=== PATIENT | male | born 1975 | race Caucasian/White ===

== ENCOUNTER 2017-11-06 13:10 | Emergency (ER) | payer SELFPAY ==
[2017-11-06 13:18] VITALS: BP 142/80
[2017-11-06] MEDS ORDERED: HYDROCODONE/ACETAMINOPHEN 5-325 MG TABLET PO ONE (14:37)
--- NOTE | 2017-11-06 14:38 | ER Document Report ---
ED Extremity Problem, Upper - General Chief Complaint: Shoulder Injury Stated Complaint: SHOULDER INJURY Time Seen by Provider: 11/06/17 14:22 Mode of Arrival: Ambulatory Information source: Patient Notes: 42-year-old male presents to ED for complaint of left shoulder pain. 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 He states he had already taken 800 mg of ibuprofen at 5:00 and at 7:00 he took 650 of Tylenol. He states that EMS came to the scene and checked him out and he did not want to come to the emergency room at that time. He states that by the time he got home the pain was so bad that his convinced him to come to the emergency room to have the shoulder checked out. He is alert and oriented speaking in full sentences walking with even steady gait respirations regular and unlabored. - HPI Patient complains to provider of: Shoulder - Left Onset: This morning Recent injury: Yes Where: Work Quality of pain: Throbbing Severity of pain: Moderate, Persistent, Worse Pain Level: 4 Context: Blow, Fall Associated symptoms: None Exacerbated by: Movement, Exertion Relieved by: Nothing Similar symptoms previously: No - Related Data Allergies/Adverse Reactions: Penicillins Allergy (Verified 11/06/17 13:15) Past Medical History - General Information source: Patient - Social History Smoking Status: Current Every Day Smoker Cigarette use (# per day): Yes - 2 ppd Chew tobacco use (# tins/day): No Smoking Education Provided: Yes - 4min Frequency of alcohol use: None Drug Abuse: None 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 Lives with: Family Family History: Reviewed & Not Pertinent Patient has suicidal ideation: No Patient has homicidal ideation: No - Past Medical History Cardiac Medical History: Reports: None Pulmonary Medical History: Reports: None EENT Medical History: Reports: None Neurological Medical History: Reports: None Endocrine Medical History: Reports: None Renal/ Medical History: Reports: None Malignancy Medical History: Reports None GI Medical History: Reports: None Musculoskeltal Medical History: Reports None Skin Medical History: Reports None Psychiatric Medical History: Reports: None Traumatic Medical History: Reports: None Infectious Medical History: Reports: None Past Surgical History: Reports: Hx Adenoidectomy, Hx Myringotomy, Hx Tonsillectomy, Other - Lasix as surgery - Immunizations Immunizations up to date: No Hx Diphtheria, Pertussis, Tetanus Vaccination: No Review of Systems - Review of Systems Constitutional: No symptoms reported EENT: No symptoms reported Cardiovascular: No symptoms reported Respiratory: No symptoms reported Gastrointestinal: No symptoms reported Genitourinary: No symptoms reported Male Genitourinary: No symptoms reported Musculoskeletal: Joint pain, Joint swelling - Left shoulder pain swelling Skin: No symptoms reported Hematologic/Lymphatic: No symptoms reported Neurological/Psychological: No symptoms reported Physical Exam - Vital signs Vitals: Temp Pulse Resp BP Pulse Ox 98.9 F 91 16 142/80 H 97 11/06/17 13:17 11/06/17 13:17 11/06/17 13:17 11/06/17 13:17 11/06/17 13:17 Interpretation: Normal - General General appearance: Appears well, Alert - HEENT Head: Normocephalic, Atraumatic Eyes: Normal Pupils: PERRL - Respiratory Respiratory status: No respiratory distress Chest status: Nontender Breath sounds: Normal Chest palpation: Normal - Cardiovascular Rhythm: Regular Heart sounds: Normal auscultation Murmur: No - Abdominal Inspection: Normal Distension: No distension Bowel sounds: Normal Tenderness: Nontender Organomegaly: No organomegaly - Back Back: Normal, Nontender - Extremities General upper extremity: Normal color, Normal temperature General lower extremity: Normal inspection, Nontender, Normal color, Normal ROM , Normal temperature, Normal weight bearing. No: Ricco's sign Shoulder: Tender, Ecchymosis, Limited ROM - Due to pain - Neurological Neuro grossly intact: Yes Cognition: Normal Orientation: AAOx4 Crystal Coma Scale Eye Opening: Spontaneous Hanh Coma Scale Verbal: Oriented Crystal Coma Scale Motor: Obeys Commands Hanh Coma Scale Total: 15 Speech: Normal Motor strength normal: LUE, RUE, LLE, RLE Sensory: Normal - Psychological Associated symptoms: Normal affect, Normal mood - Skin Skin Temperature: Warm Skin Moisture: Dry Skin Color: Normal Course - Re-evaluation Re-evalutation: 11/06/17 21:07 Report was discussed with patient and written report given to patient. Patient was offered a sling but refused it. Patient was given instructions on ice and ibuprofen. Patient was instructed to follow-up with orthopedics. - Vital Signs Vital signs: Temp Pulse Resp BP Pulse Ox 98.9 F 91 16 142/80 H 97 11/06/17 13:17 11/06/17 13:17 11/06/17 13:17 11/06/17 13:17 11/06/17 13:17 - Diagnostic Test Radiology reviewed: Image reviewed, Reports reviewed Discharge - Discharge Clinical Impression: Injury of left shoulder Qualifiers: Encounter type: initial encounter Qualified Code(s): S49.92XA - Unspecified injury of left shoulder and upper arm, initial encounter Condition: Stable Disposition: HOME, SELF-CARE Additional Instructions: Shoulder Injury You have injured your shoulder. This usually results from stretching or tearing of the tendons during trauma. Time and protection are required in order to heal properly. Many injuries are quite disabling, and should be taken seriously. Initial treatment includes cold packs and a sling to rest the shoulder. The physician has assessed the seriousness of your injury, and has outlined a treatment plan. Understand that this treatment may change, depending on how you progress. If a re-examination was recommended, it is important that you follow up as instructed. Some shoulder injuries (such as partial tear of the rotator cuff) are only suspected after you've failed to improve. Call us if there's severe pain, numbness, or loss of function. Toradol Injection You have been given an injection of ketorolac tromethamine (Toradol). This is an excellent, safe drug for pain control. It also has potent antiinflammatory action. You should have significant pain relief within about one hour. Toradol is not addicting and is non-sedating. It does not interfere with driving or work. Call or return if you develop itching, hives, shortness of breath, or rash. Exercise Program for the Shoulder Since the shoulder moves in so many directions, the joint attachment is weak. Muscles provide most of the stability to the shoulder. You must exercise your shoulder to prevent painful instability or stiffening. PASSIVE - These may be begun within a few days of the injury. While standing, lean forward, allowing the arm to hang down towards the floor. Move the arm in small circles while slowly twisting your chest towards and away from the hanging arm. Do this for one minute. ACTIVE - These may be performed when the doctor gives permission. Begin with the arms at the sides. Raise the arms forward (shoulder's width apart) until they reach shoulder level. Then slowly swing both arms back until they are aiming straight out away from each other. Then bring them forward again, and finally, lower them to your sides. Repeat 20 to 30 times. As you improve, put weights in your hands for the exercise. Start with one pound, and work up to 10 pounds. Never use more than is comfortable. Athletes may work up to 30 pounds. Ibuprofen Ibuprofen is an excellent, safe drug for pain control. In addition, it has potent antiinflammatory effects which are beneficial, especially in the treatment of injuries, arthritis, or tendonitis. It's best to take ibuprofen with food. Persons with ulcer disease or allergy to aspirin should notify their physician of this before taking ibuprofen. Take the medication exactly as prescribed. Don't take additional doses unless instructed to do so by your doctor. If you develop wheezing, shortness of breath, hives, faintness, stomach pain, vomiting, or dark black stools, return for re-evaluation at once. FOLLOW-UP CARE: If you have been referred to a physician for follow-up care, call the physician s office for an appointment as you were instructed or within the next two days. If you experience worsening or a significant change in your symptoms, notify the physician immediately or return to the Emergency Department at any time for re-evaluation. Forms: Elevated Blood Pressure, Smoking Cessation Education, Return to Work Referrals: ELI KIRAN MD [ACTIVE STAFF] - Follow up as needed
[2017-11-06] MEDS ORDERED: KETOROLAC TROMETHAMINE 60 MG/2 ML SDV IM ONE (14:51)
--- NOTE | 2017-11-06 15:13 | RADIOLOGY REPORT (SQ) ---
EXAM DESCRIPTION: SHOULDER LEFT 2 OR MORE VIEWS COMPLETED DATE/TIME: 11/06/2017 2:38 pm REASON FOR STUDY: fall injury COMPARISON: None. NUMBER OF VIEWS: Three views. TECHNIQUE: Internal rotation, external rotation, and Y view images acquired of the left shoulder. LIMITATIONS: None. FINDINGS: MINERALIZATION: Normal. BONES: No acute fracture or dislocation. No worrisome bone lesions. JOINTS: No dislocation. VISUALIZED LUNGS AND RIBS: No pneumothorax. No rib fracture. SOFT TISSUES: No radiopaque foreign body. OTHER: No other significant finding. IMPRESSION: NEGATIVE STUDY OF THE LEFT SHOULDER. NO RADIOGRAPHIC EVIDENCE OF ACUTE INJURY. TECHNICAL DOCUMENTATION: JOB ID: [id number] [employer]- All Rights Reserved Reading location - IP/workstation name: [email or web address]
== END 2017-11-06 15:40 | disposition home or self-care (01) ==
LOC: ER 13:10
DX: S49.92XA Unspecified injury of left shoulder and upper arm, initial encounter (principal); M25.512 Pain in left shoulder; W19.XXXA Unspecified fall, initial encounter; Y93.89 Activity, other specified; Y99.0 Civilian activity done for income or pay; F17.210 Nicotine dependence, cigarettes, uncomplicated; Z71.6 Tobacco abuse counseling; Z88.0 Allergy status to penicillin
CPT/HCPCS: 99283; 99406

== ENCOUNTER 2018-06-19 16:48 | Inpatient (IN) | payer SELFPAY ==
[~2018-06-19 16:48] MED LIST: DEXAMETHASONE SOD PHOSPHATE INJ 4 MG/1 ML VIAL ONE; GLYCOPYRROLATE 1 MG/5 ML SYRINGE ONE; NEOSTIGMINE METHYLSULFATE 10 MG/10 ML VIAL ONE; ONDANSETRON HCL INJ/PF 4 MG/2 ML SDV ONE; ROCURONIUM BROMIDE INJ 50 MG/5 ML VIAL IV ONE; SUCCINYLCHOLINE CHLORIDE INJ 200 MG/10 ML VIAL ONE
[2018-06-19] MEDS ORDERED: NORMAL SALINE 1000 ML 1,000 ML IV ONE (17:26)
[2018-06-19] MEDS ORDERED: FAMOTIDINE INJ/PF 20 MG/2 ML SDV IV ONE (17:26)
--- NOTE | 2018-06-19 17:27 | ER Document Report ---
ED Medical Screen (RME) - General Chief Complaint: Abdominal Pain Stated Complaint: ABDOMINAL PAIN Time Seen by Provider: 06/19/18 17:26 - HPI Notes: 06/19/18 17:26 Epigastric and right lower quadrant pain significant right lower quadrant tenderness - Related Data Allergies/Adverse Reactions: Penicillins Allergy (Verified 11/06/17 13:15) Past Medical History - Social History Chew tobacco use (# tins/day): No Frequency of alcohol use: Occasional Drug Abuse: None Renal/ Medical History: Denies: Hx Peritoneal Dialysis Past Surgical History: Reports: Hx Adenoidectomy, Hx Myringotomy, Hx Tonsillectomy, Other - Lasix as surgery - Immunizations Immunizations up to date: No Hx Diphtheria, Pertussis, Tetanus Vaccination: No Physical Exam - Vital signs Vitals: Temp Pulse Resp BP Pulse Ox 99.5 F 107 H 18 150/85 H 97 06/19/18 17:03 06/19/18 17:03 06/19/18 17:03 06/19/18 17:03 06/19/18 17:03 - Abdominal Tenderness: Tender - Rlq, Guarding Course - Vital Signs Vital signs: Temp Pulse Resp BP Pulse Ox 99.5 F 107 H 18 150/85 H 97 06/19/18 17:03 06/19/18 17:03 06/19/18 17:03 06/19/18 17:03 06/19/18 17:03
[2018-06-19 18:25] LABS: HEMATOCRIT 44.2 % (37.9-51.0); HEMOGLOBIN 15.3 g/dL (13.5-17.0); MEAN CORPUSCULAR HEMOGLOBIN 32.1 pg (27.0-33.4); MEAN CORPUSCULAR HGB CONC 34.5 g/dL (32.0-36.0); MEAN CORPUSCULAR VOLUME 93 fl (80-97); PLATELET COUNT 531 10^3/uL (150-450); RED BLOOD COUNT 4.76 10^6/uL (4.35-5.55); WHITE BLOOD COUNT 20.2 10^3/uL (4.0-10.5)
--- NOTE | 2018-06-19 18:35 | RADIOLOGY REPORT (SQ) ---
EXAM DESCRIPTION: CT ABD/PELVIS WITH IV ONLY COMPLETED DATE/TIME: 06/19/2018 6:24 pm REASON FOR STUDY: Rlq pain COMPARISON: None. TECHNIQUE: CT scan of the abdomen and pelvis performed using helical scanning technique with dynamic intravenous contrast injection. No oral contrast. Images reviewed with lung, soft tissue, and bone windows. Reconstructed coronal and sagittal MPR images reviewed. Delayed images for evaluation of the urinary system also acquired. All images stored on PACS. All CT scanners at this facility use dose modulation, iterative reconstruction, and/or weight based d osing when appropriate to reduce radiation dose to as low as reasonably achievable ([facility]ARA). [facility]: Dose Right [facility]: CareDose [facility]: Dose Right [facility]: Teradose 4D [facility]: Schoolfy CONTRAST TYPE AND DOSE: contrast/concentration: Isovue 350.00 mg/ml; Total Contrast Delivered: 100.0 ml; Total Saline Delivered: 72.0 ml RENAL FUNCTION: None required. The patient is less than 50 years old. RADIATION DOSE: CT Rad equipment meets quality standard of care and radiation dose reduction techniq ues were employed. CTDIvol: 19.6 - 20.8 mGy. DLP: 2570 mGy-cm.. LIMITATIONS: None. FINDINGS: LOWER CHEST: No significant findings. No nodules or infiltrates. LIVER: Normal size. No masses. No dilated ducts. SPLEEN: Normal size. No focal lesions. PANCREAS: No masses. No significant calcifications. No adjacent inflammation or peripancreatic fluid collections. Pancreatic duct not dilated. GALLBLADDER: No identified stones by CT criteria. No inflammatory changes to suggest cholecystitis. ADRENAL GLANDS: No significant masses or asymmetry. RIGHT KIDNEY AND URETER: No solid masses. No significant calcifications. No hydronephrosis or hyd roureter. LEFT KIDNEY AND URETER: No solid masses. No significant calcifications. No hydronephrosis or hydr oureter. AORTA AND VESSELS: No aneurysm. No dissection. Renal arteries, SMA, celiac without stenosis. RETROPERITONEUM: No retroperitoneal adenopathy, hemorrhage or masses. BOWEL AND PERITONEAL CAVITY: No masses or inflammatory changes. No free fluid or peritoneal masses. APPENDIX: Thickened and fluid-filled appendix in the right lower quadrant measuring 1.6 cm with exten sive surrounding fat stranding PELVIS: No mass. No free fluid. Normal bladder. ABDOMINAL WALL: No masses. No hernias. BONES: No significant or acute findings. OTHER: No other significant finding. IMPRESSION: Thickened and fluid-filled appendix in the right lower quadrant measuring 1.6 cm with ex tensive surrounding fat stranding, consistent with acute appendicitis. No evidence of perforation or abscess. TECHNICAL DOCUMENTATION: JOB ID: [id number] Quality ID # [id number]: Final reports with documentation of one or more dose reduction techniques (e.g., Au tomated exposure control, adjustment of the mA and/or kV according to patient size, use of iterative reconstruction technique) 2010 [employer]- All Rights Reserved Reading location - IP/workstation name: [email or web address]
[2018-06-19 18:40] LABS: ABSOLUTE LYMPHOCYTES# (MANUAL) 4.6 10^3/uL (0.5-4.7); ABSOLUTE MONOCYTES # (MANUAL) 1.8 10^3/uL (0.1-1.4); ABSOLUTE NEUTROPHILS# (MANUAL) 13.7 10^3/uL (1.7-8.2); BASOPHILS % (MANUAL) 0 % (0-2); EOSINOPHILS % (MANUAL) 0 % (0-6); LYMPHOCYTES % (MANUAL) 23 % (13-45); MONOCYTES % (MANUAL) 9 % (3-13); SEGMENTED NEUTROPHILS % (MAN) 68 % (42-78); TOTAL CELLS COUNTED 100
[2018-06-19 18:41] LABS: PLATELET CLUMPS PRESENT; PLATELET COMMENT INCREASED
[2018-06-19 19:04] LABS: ALANINE AMINOTRANSFERASE 37 U/L (21-72); ALBUMIN 4.5 g/dL (3.5-5.0); ALKALINE PHOSPHATASE 97 U/L (38-126); ANION GAP 10 (5-19); ASPARTATE AMINO TRANSFERASE 21 U/L (17-59); BILIRUBIN,DIRECT 0.2 mg/dL (0.0-0.4); BILIRUBIN,TOTAL 0.5 mg/dL (0.2-1.3); BLOOD UREA NITROGEN 16 mg/dL (7-20); CALCIUM 9.2 mg/dL (8.4-10.2); CARBON DIOXIDE 26 mmol/L (22-30); CHLORIDE 105 mmol/L (98-107); GLUCOSE 98 mg/dL (75-110); LIPASE 72.1 U/L (23-300); POTASSIUM 4.3 mmol/L (3.6-5.0); SODIUM 140.8 mmol/L (137-145); TOTAL PROTEIN 7.2 g/dL (6.3-8.2)
[2018-06-19] MEDS ORDERED: NICOTINE 21 MG/24 HR PATCH.TD24 TD ONE (20:22)
--- NOTE | 2018-06-19 20:29 | ER Document Report ---
ED General - General Chief Complaint: Abdominal Pain Stated Complaint: ABDOMINAL PAIN Time Seen by Provider: 06/19/18 17:26 Notes: Patient is a 43-year-old male without chronic medical problems who presents with 2 weeks of abdominal pain that has progressed to become more focal in the right lower abdomen over the past 1 week. Patient was seen in urgent care, referred to the emergency department for further assessment given concern for possible acute appendicitis. Patient describes a dull, throbbing, constant pain to the right lower abdomen worsened by moving or touching the area. Nothing improves the pain. No history of similar symptoms in the past. Has had nausea but no vomiting. No fever or constitutional symptoms. No prior abdominal surgical history. - Related Data Allergies/Adverse Reactions: Penicillins Allergy (Verified 11/06/17 13:15) Past Medical History - General Information source: Patient - Social History Smoking Status: Current Every Day Smoker Chew tobacco use (# tins/day): No Frequency of alcohol use: Occasional Drug Abuse: None Lives with: Spouse/Significant other Family History: Reviewed & Not Pertinent Patient has suicidal ideation: No Patient has homicidal ideation: No Renal/ Medical History: Denies: Hx Peritoneal Dialysis Past Surgical History: Reports: Hx Adenoidectomy, Hx Myringotomy, Hx Tonsillectomy, Other - Lasix as surgery - Immunizations Immunizations up to date: No Hx Diphtheria, Pertussis, Tetanus Vaccination: No Review of Systems - Review of Systems Notes: Constitutional: Negative for fever. HENT: Negative for sore throat. Eyes: Negative for visual changes. Cardiovascular: Negative for chest pain. Respiratory: Negative for shortness of breath. Gastrointestinal: Positive for abdominal pain and nausea Genitourinary: Negative for dysuria. Musculoskeletal: Negative for back pain. Skin: Negative for rash. Neurological: Negative for headaches, weakness or numbness. 10 point ROS negative except as marked above and in HPI. Physical Exam - Vital signs Vitals: Temp Pulse Resp BP Pulse Ox 99.5 F 107 H 18 150/85 H 97 06/19/18 17:03 06/19/18 17:03 06/19/18 17:03 06/19/18 17:03 06/19/18 17:03 Interpretation: Hypertensive, Tachycardic Notes: PHYSICAL EXAMINATION: GENERAL: Well-appearing, well-nourished and in no acute distress. HEAD: Atraumatic, normocephalic. EYES: Pupils equal round and reactive to light, extraocular movements intact, sclera anicteric, conjunctiva are normal. ENT: nares patent, oropharynx clear without exudates. Moist mucous membranes. NECK: Normal range of motion, supple without lymphadenopathy LUNGS: Breath sounds clear to auscultation bilaterally and equal. No wheezes rales or rhonchi. HEART: Regular rate and rhythm without murmurs ABDOMEN: Soft, focal tenderness to the right lower quadrant with rebound but no guarding. No other localized areas of tenderness. EXTREMITIES: Normal range of motion, no pitting or edema. No cyanosis. NEUROLOGICAL: No focal neurological deficits. Moves all extremities spontaneously and on command. PSYCH: Normal mood, normal affect. SKIN: Warm, Dry, normal turgor, no rashes or lesions noted. Course - Re-evaluation Re-evalutation: 06/19/18 20:30 Patient presents with an exam consistent with acute appendicitis, confirmed on CT of the abdomen pelvis. Leukocytosis present. Patient is otherwise well in appearance, vitals within acceptable limits at time of my evaluation although moderate tachycardia noted at time of presentation. I discussed this case with Dr. Patrick the surgeon on-call who has accepted the patient for surgical management. - Vital Signs Vital signs: Temp Pulse Resp BP Pulse Ox 98.2 F 83 15 141/81 H 97 06/19/18 21:26 06/19/18 21:26 06/19/18 21:26 06/19/18 21:26 06/19/18 21:26 - Laboratory Result Diagrams: 06/19/18 18:02 06/19/18 18:37 Laboratory results interpreted by me: 06/19/18 18:02 WBC 20.2 H Plt Count 531 H Abs Neuts (Manual) 13.7 H Abs Monocytes (Manual) 1.8 H - Diagnostic Test Radiology reviewed: Reports reviewed Discharge - Discharge Clinical Impression: Acute appendicitis Qualifiers: Acute appendicitis type: with localized peritonitis Appendicitis gangrene presence: unspecified whether gangrene present Appendicitis perforation presence: without perforation Appendicitis abscess presence: without abscess Qualified Code(s): K35.30 - Acute appendicitis with localized peritonitis, without perforation or gangrene Condition: Fair Disposition: ADMITTED INPATIENT Admitting Provider: Surgicalist Unit Admitted: Surgical Floor
[2018-06-19] MEDS ORDERED: CIPROFLOXACIN 400 MG/D5W RTU 400 MG/200 ML RTUPB IV ONE (20:39)
[2018-06-19] MEDS ORDERED: RINGERS SOLUTION,LACTATED 1,000 ML IV ONE (20:40)
[2018-06-19] MEDS ORDERED: METRONIDAZOLE 500 MG/NS RTU 500 MG/100 ML RTUPB IV ONE (20:40)
[2018-06-19] MEDS ORDERED: FENTANYL CITRATE INJ/PF 250 MCG/5 ML AMPULE ONE (21:17)
[2018-06-19] MEDS ORDERED: MIDAZOLAM 2 MG/2 ML INJ ONE (21:17)
[2018-06-19] MEDS ORDERED: PROPOFOL INJ 200 MG/20 ML VIAL IV ONE (21:18)
[2018-06-19] MEDS ORDERED: HYDROMORPHONE HCL INJ/PF 2 MG/ML AMPULE ONE (21:18)
[2018-06-19] MEDS ORDERED: BUPIVACAINE HCL 0.25 % INJ/PF (2.5 MG/1 ML) 30 ML VIAL ONE (22:03)
[2018-06-19] MEDS ORDERED: FENTANYL CITRATE INJ/PF 100 MCG/2 ML AMPUL IV PRN ×3 (22:15)
[2018-06-19] MEDS ORDERED: MEPERIDINE HCL/PF INJ 25 MG/1 ML DISP.SYRIN IV PRN (22:15)
[2018-06-19] MEDS ORDERED: MORPHINE SULFATE 10 MG/ML INJ IV PRN (22:15)
[2018-06-19] MEDS ORDERED: DIPHENHYDRAMINE HCL 50 MG/ML VIAL IV PRN (22:15)
[2018-06-19] MEDS ORDERED: PROMETHAZINE HCL INJ 25 MG/1 ML VIAL IV PRN (22:15)
[2018-06-20] MEDS ORDERED: FENTANYL CITRATE INJ/PF 100 MCG/2 ML AMPUL ONE ×3 (00:26→01:20)
[2018-06-20] MEDS ORDERED: ACETAMINOPHEN 1,000 MG/100 ML RTUPB IV ONE (01:20)
[2018-06-20] MEDS ORDERED: PHARMACY COMMUNICATION ORDER MC NR (02:30)
[2018-06-20] MEDS: KETOROLAC TROMETHAMINE INJ/PF 30 MG/1 ML SDV IV SCH ×4 (02:38→21:09)
--- NOTE | 2018-06-20 04:47 | RADIOLOGY REPORT (SQ) ---
EXAM DESCRIPTION: XR ABDOMEN 1 VIEW (KUB) COMPLETED DATE/TME: 06/20/2018 02:29 CLINICAL HISTORY: 43 years, Male, Check Placement of NG Tube COMPARISON: None. NUMBER OF VIEWS: One TECHNIQUE: Supine radiograph of the abdomen LIMITATIONS: None. FINDINGS: Nasogastric tube is in satisfactory position. No dilated loops of small bowel are identified. Surgical david are noted along the left lower quadrant. There is a catheter within the lower pelvis. Contrast is noted within the urinary bladder. There are no abnormal calcifications. The bones are unremarkable. IMPRESSION: Satisfactory positioning of the nasogastric tube copyright 2010 [employer]- All Rights Reserved
[2018-06-20] MEDS: METRONIDAZOLE 500 MG/NS RTU 500 MG/100 ML RTUPB IV SCH ×3 (05:12→21:09)
[2018-06-20 05:24] LABS: HEMATOCRIT 39.5 % (37.9-51.0); HEMOGLOBIN 13.7 g/dL (13.5-17.0); MEAN CORPUSCULAR HEMOGLOBIN 32.1 pg (27.0-33.4); MEAN CORPUSCULAR HGB CONC 34.5 g/dL (32.0-36.0); MEAN CORPUSCULAR VOLUME 93 fl (80-97); PLATELET COUNT 476 10^3/uL (150-450); RED BLOOD COUNT 4.25 10^6/uL (4.35-5.55); RED CELL DISTRIBUTION WIDTH 12.6 % (11.5-14.0); WHITE BLOOD COUNT 28.9 10^3/uL (4.0-10.5)
[2018-06-20 05:53] LABS: ABSOLUTE LYMPHOCYTES# (MANUAL) 0.3 10^3/uL (0.5-4.7); ABSOLUTE MONOCYTES # (MANUAL) 1.4 10^3/uL (0.1-1.4); ABSOLUTE NEUTROPHILS# (MANUAL) 27.2 10^3/uL (1.7-8.2); BASOPHILS % (MANUAL) 0 % (0-2); EOSINOPHILS % (MANUAL) 0 % (0-6); LYMPHOCYTES % (MANUAL) 1 % (13-45); MONOCYTES % (MANUAL) 5 % (3-13); SEGMENTED NEUTROPHILS % (MAN) 94 % (42-78); TOTAL CELLS COUNTED 100
[2018-06-20 06:02] LABS: HELMET CELLS SLIGHT; OVALOCYTES SLIGHT; PLATELET COMMENT ADEQUATE; POIKILOCYTOSIS SLIGHT; TOXIC GRANULATION SLIGHT; TOXIC VACUOLATION PRESENT
[2018-06-20 06:06] LABS: ANION GAP 12 (5-19); BLOOD UREA NITROGEN 14 mg/dL (7-20); CALCIUM 9.2 mg/dL (8.4-10.2); CARBON DIOXIDE 25 mmol/L (22-30); CHLORIDE 105 mmol/L (98-107); GLUCOSE 136 mg/dL (75-110); SODIUM 142.4 mmol/L (137-145)
--- NOTE | 2018-06-20 06:18 | HISTORY AND PHYSICAL E ---
History and Physical NAME: HEMANTH BOTELLO : 1975 AGE: 43Y ADMITTED: 06/19/2018 ROOM: 430 CHIEF COMPLAINT: Abdominal pain. HISTORY OF PRESENT ILLNESS: This is a 43-year-old male who has been having off and on vague abdominal pains for the past 2 weeks. About 3 days ago he had to lie down because of pain and fever. Also associated nausea. Whenever he moves, it causes him pain, but he was able to eat a regular diet until around noontime today. He went to ED, [facility], and referred to ED because of tenderness in the right lower quadrant and telling him he has acute appendicitis. CAT scan of the abdomen was done in the ED, which is compatible with acute appendicitis, and the patient also with a white count of 20,000. PAST MEDICAL HISTORY: Unremarkable. FAMILY HISTORY: Mother of stomach cancer in her late 50s. Father with late onset of diabetes mellitus. ALLERGIES: PENICILLIN. SOCIAL HISTORY: Smokes 2 packs a day and drinks rarely. 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 REVIEW OF SYSTEMS: Denies any vomiting, but has some nausea. Had a fever 1 day, about 5 days ago. He denies any chest pains or shortness of breath nor cough. Admits to having vague, tolerable abdominal pains with nausea. Pains more toward the right lower quadrant today. Extremities: No edema. Denies any headaches. Admits to having fever, occasional chills. No muscle weakness or numbness. PHYSICAL EXAMINATION: GENERAL: Well-developed, well-nourished, muscular 43-year-old male. Appears in no definite distress. HEENT: Neck is supple. No thyromegaly. LUNGS: Clear. HEART: Regular sinus rhythm. ABDOMEN: Soft, with localized tenderness in the right lower quadrant. EXTREMITIES: No edema. IMPRESSION: Acute appendicitis. PLAN: For laparoscopic appendectomy, possible open. Start on IV antibiotics. DICTATING PHYSICIAN: ROM CAMPBELL M.D. [id number] PHY#: [id number] ID: [id number] JOB#: [id number] ACCT: [id number] cc:ROM CAMPBELL M.D. >
[2018-06-20 06:22] LABS: POTASSIUM 5.4 mmol/L (3.6-5.0)
--- NOTE | 2018-06-20 09:34 | PDOC PROGRESS REPORT ---
Subjective Progress Note for:: 06/20/18 Reason For Visit: ACUTE APPENDICITIS Physical Exam Vital Signs: Temp Pulse Resp BP Pulse Ox 97.9 F 99 17 112/72 96 06/20/18 07:31 06/20/18 07:31 06/20/18 07:31 06/20/18 07:31 06/20/18 07:31 Intake & Output 06/19/18 06/20/18 06/21/18 06:59 06:59 06:59 Intake Total 3050 2500 Output Total 175 360 Balance 2875 2140 Weight 131 kg General appearance: PRESENT: no acute distress GI/Abdominal exam: PRESENT: other - abd soft, non tender dressing removed and wound clean sutures noted Extremities exam: PRESENT: full ROM Neurological exam: PRESENT: alert, oriented to time, oriented to situation, reflexes normal Results Laboratory Results: 06/20/18 04:54 06/20/18 04:54 06/19/18 06/19/18 06/19/18 18:02 18:02 18:37 WBC 20.2 H RBC 4.76 Hgb 15.3 Hct 44.2 MCV 93 MCH 32.1 MCHC 34.5 RDW 13.0 Plt Count 531 H Seg Neutrophils % Not Reportable Lymphocytes % Not Reportable Monocytes % Not Reportable Eosinophils % Not Reportable Basophils % Not Reportable Absolute Neutrophils Not Reportable Absolute Lymphocytes Not Reportable Absolute Monocytes Not Reportable Absolute Eosinophils Not Reportable Absolute Basophils Not Reportable Sodium Cancelled 140.8 Potassium Cancelled 4.3 Chloride Cancelled 105 Carbon Dioxide Cancelled 26 Anion Gap Cancelled 10 BUN Cancelled 16 Creatinine Cancelled 0.82 Est GFR ( Amer) Cancelled > 60 Est GFR (Non-Af Amer) Cancelled > 60 Glucose Cancelled 98 Calcium Cancelled 9.2 Total Bilirubin Cancelled 0.5 AST Cancelled 21 ALT Cancelled 37 Alkaline Phosphatase Cancelled 97 Total Protein Cancelled 7.2 Albumin Cancelled 4.5 Lipase Cancelled 72.1 06/20/18 06/20/18 04:54 04:54 WBC 28.9 H RBC 4.25 L Hgb 13.7 Hct 39.5 MCV 93 MCH 32.1 MCHC 34.5 RDW 12.6 Plt Count 476 H Seg Neutrophils % Not Reportable Lymphocytes % Not Reportable Monocytes % Not Reportable Eosinophils % Not Reportable Basophils % Not Reportable Absolute Neutrophils Not Reportable Absolute Lymphocytes Not Reportable Absolute Monocytes Not Reportable Absolute Eosinophils Not Reportable Absolute Basophils Not Reportable Sodium 142.4 Potassium 5.4 H D Chloride 105 Carbon Dioxide 25 Anion Gap 12 BUN 14 Creatinine 0.89 Est GFR ( Amer) > 60 Est GFR (Non-Af Amer) > 60 Glucose 136 H Calcium 9.2 Total Bilirubin AST ALT Alkaline Phosphatase Total Protein Albumin Lipase Impressions: Abdomen/Pelvis CT 06/19/18 17:26 IMPRESSION: Thickened and fluid-filled appendix in the right lower quadrant measuring 1.6 cm with extensive surrounding fat stranding, consistent with acute appendicitis. No evidence of perforation or abscess. KUB X-Ray 06/20/18 02:29 IMPRESSION: Satisfactory positioning of the nasogastric tube copyright 2011 [email or web address]- All Rights Reserved Assessment & Plan - Plan Summary Plan Summary: post op open appendectomy for perforated appendicitis early this am wbc 28.9 this am lytes wnl wound dressing changed, wound clean ng removed will allow ice chips today up ambulating
--- NOTE | 2018-06-20 10:28 | OPERATIVE REPORT E ---
Operative Report NAME: HEMANTH BOTELLO : 1975 AGE: 43Y DATE OF SURGERY: ROOM: 430 ANESTHESIA: General. PREOPERATIVE DIAGNOSIS: Acute appendicitis. POSTOPERATIVE DIAGNOSIS: Perforated acute appendicitis with localized abscess. PROCEDURE DONE: Attempted laparoscopic appendectomy, open appendectomy. SURGEON: ROM CAMPBELL M.D. INDICATIONS: This is 43-year-old male who has been having off and on abdominal pains for the past 2 weeks. About 1 week ago he had a fever for 1 day. The pains got worse in the past 2 to 3 days and was encouraged by his to go to the emergency room. CAT scan of the abdomen revealed acute appendicitis with elevated white count. DESCRIPTION OF PROCEDURE: After adequate general anesthesia the patient was placed in the supine position and the abdomen prepped and draped in the usual sterile fashion. Appropriate timeout was then called. Next, infraumbilical incision was made and the fascia identified and divided and trocar inserted into the abdomen through the fascia and CO2 insufflated to 15 mmHg. Camera was then inserted. Two other trocars were placed, a 5 mm in the suprapubic area and a 12 mm in the left lower quadrant, under direct vision. The area of the appendix was then identified. There was an omentum plastered around the appendix and blunt dissection was carried out as well as dividing the omentum wrapped around the appendix with the use of LigaSure. A rim of the omentum was left on the appendix. At this point blunt dissection of the matted area of the appendix and the small bowel around it was done. While doing so some purulent material extruded out. This indicated the appendix was ruptured with localized abscess. This was aspirated and sent for BILINGUAL SALES REPRESENTATIVE. At this point the procedure was then converted to open since it was not clear as far as the appendix can be dissected further off the surrounding structures. A midline incision was then made from the distal suprapubic port to above the umbilicus. Incision deepened down to the subcutaneous and into the fascia, dividing the fascia with cautery. The abdominal cavity was then entered and a small amount of bloody fluid was encountered. There was some irrigation component of the blood. With the use of Bookwalter, the appendix was isolated. On palpating the appendix it appears that there is a matted area, likely with the appendix and the cecal wall as well as the small adherent to the area of the appendix, likely the terminal ileum. The appendix was then bluntly dissected off and the tip was able to be elevated. The small bowel was bluntly dissected off the gallbladder area. The appendix was then palpated and appeared to be thickened from the cecum. This was done with the use of a 60 cm TA stapler, the appendix was stapled and divided right on the cecal area, which was relatively soft compared to the appendix itself, which was markedly thickened and hard. The appendiceal area was then sharply cut from the stapler prior to opening up the stapler; however, after removal of the specimen, the appendix, the closure was uncertain that the david got fired. Next, with the use of Allis clamps the cecal area was stapled again with the TA 60. This time the david appeared to be fired and the edge of the cecum reinforced with a running suture using 3-0 Vicryl. The abdominal cavity was then copiously irrigated with at least 6 L of saline. No other obvious abnormality was noted. Hemostasis appeared to be intact. Next, a #15 Ludin drain was then placed through a stab wound at the right side just towards the right upper quadrant and brought down towards the appendiceal area and into the pelvis. This was then anchored to the skin with 2-0 silk. Next, the fascial defect was then closed with running suture using #1 PDS starting from each end and tying them together just below the umbilicus. A [id number] suture using 0 Prolene was used to reinforce the repair at the area of the umbilicus where the initial trocar was placed. Next, the subcutaneous area was then irrigated. Next, multiple interrupted 2-0 nylons were placed on the skin and subcutaneous area and left long and clipped with Steri-Strips. The plan is to tie the suture in about 3 days after placement of packing. The wound was then packed with Betadine soaked Kerlix. ABD pads were placed on the operative site and an adhesive placed over the ABD pads. The patient tolerated the procedure well. Needle, instrument, sponge counts were all correct. Estimated blood loss about 100 mL. The patient then brought to the recovery room, extubated, in satisfactory condition. DICTATING PHYSICIAN: ROM CAMPBELL M.D. [id number] PHY#: [id number] ID: [id number] JOB#: [id number] ACCT: [id number] cc:ROM CAMPBELL M.D. >
[2018-06-20] MEDS: CIPROFLOXACIN 400 MG/D5W RTU 400 MG/200 ML RTUPB IV SCH ×2 (11:10→21:09)
[2018-06-20] MEDS: PHENOL/SODIUM PHENOLATE 100 SPRAY/177 ML BOTTLE PO PRN (11:11)
[2018-06-20] MEDS: HYDROMORPHONE HCL INJ/PF 2 MG/ML AMPULE IV PRN ×3 (13:11→22:12)
[2018-06-20] MEDS: NORMAL SALINE 1000 ML 1,000 ML IV PRN ×2 (13:12→20:31)
[2018-06-20] MEDS ORDERED: NICOTINE 21 MG/24 HR PATCH.TD24 TD ONE (19:15)
[2018-06-21] MEDS: KETOROLAC TROMETHAMINE INJ/PF 30 MG/1 ML SDV IV SCH ×4 (03:10→21:13)
[2018-06-21] MEDS: HYDROMORPHONE HCL INJ/PF 2 MG/ML AMPULE IV PRN ×5 (03:11→21:13)
[2018-06-21 04:46] LABS: ABSOLUTE BASOPHILS # (AUTO) 0.1 10^3/uL (0.0-0.2); ABSOLUTE LYMPHOCYTES (AUTO) 1.5 10^3/uL (0.5-4.7); ABSOLUTE MONOCYTES (AUTO) 1.7 10^3/uL (0.1-1.4); ABSOLUTE NEUT (AUTO) 14.5 10^3/uL (1.7-8.2); BASOPHILS % (AUTO) 0.4 % (0-2); EOSINOPHILS % (AUTO) 0.2 % (0-6); HEMATOCRIT 35.4 % (37.9-51.0); HEMOGLOBIN 12.2 g/dL (13.5-17.0); LYMPHOCYTES % (AUTO) 8.3 % (13-45); MEAN CORPUSCULAR HEMOGLOBIN 31.9 pg (27.0-33.4); MEAN CORPUSCULAR HGB CONC 34.4 g/dL (32.0-36.0); MEAN CORPUSCULAR VOLUME 93 fl (80-97); MONOCYTES % (AUTO) 9.6 % (3-13); PLATELET COUNT 382 10^3/uL (150-450); RED BLOOD COUNT 3.81 10^6/uL (4.35-5.55); RED CELL DISTRIBUTION WIDTH 12.5 % (11.5-14.0); SEGMENTED NEUTROPHILS % (AUTO) 81.5 % (42-78); TOTAL CELLS COUNTED % (AUTO) 100 %; WHITE BLOOD COUNT 17.8 10^3/uL (4.0-10.5)
[2018-06-21 05:12] LABS: ANION GAP 9 (5-19); BLOOD UREA NITROGEN 16 mg/dL (7-20); CALCIUM 8.4 mg/dL (8.4-10.2); CARBON DIOXIDE 24 mmol/L (22-30); CHLORIDE 107 mmol/L (98-107); GLUCOSE 107 mg/dL (75-110); SODIUM 140.3 mmol/L (137-145)
[2018-06-21 05:23] LABS: POTASSIUM 4.1 mmol/L (3.6-5.0)
[2018-06-21] MEDS: METRONIDAZOLE 500 MG/NS RTU 500 MG/100 ML RTUPB IV SCH ×3 (06:56→21:15)
[2018-06-21] MEDS: NORMAL SALINE 1000 ML 1,000 ML IV PRN ×2 (07:57→17:52)
[2018-06-21] MEDS: NICOTINE 21 MG/24 HR PATCH.TD24 TD SCH (09:14)
[2018-06-21] MEDS: CIPROFLOXACIN 400 MG/D5W RTU 400 MG/200 ML RTUPB IV SCH ×2 (09:15→21:14)
[2018-06-21] MEDS: ENOXAPARIN SODIUM INJ 40 MG/0.4 ML DISP.SYRIN SUBCUT SCH (09:21)
--- NOTE | 2018-06-21 10:29 | PDOC PROGRESS REPORT ---
Subjective Progress Note for:: 06/21/18 Subjective:: Patient has no specific, new complaints. He like to try clear liquids. He denies nausea or vomiting. No lola bowel movement. Reason For Visit: ACUTE APPENDICITIS Physical Exam Vital Signs: Temp Pulse Resp BP Pulse Ox 99.9 F 97 16 113/65 91 L 06/21/18 08:32 06/21/18 08:32 06/21/18 08:32 06/21/18 08:32 06/21/18 08:32 Intake & Output 06/20/18 06/21/18 06/22/18 06:59 06:59 06:59 Intake Total 2500 2940 100 Output Total 360 753 95 Balance 2140 2187 5 Weight 131 kg 125 kg General appearance: PRESENT: no acute distress GI/Abdominal exam: PRESENT: other - Soft; dressing large and covering open wound with DPC sutures; packing in open areas switched at this morning. Packing not removed this a.m. The abdomen does not appear tender; right-sided abdominal serous Results Laboratory Results: 06/21/18 04:20 06/21/18 04:20 06/21/18 06/21/18 04:20 04:20 WBC 17.8 H RBC 3.81 L Hgb 12.2 L Hct 35.4 L MCV 93 MCH 31.9 MCHC 34.4 RDW 12.5 Plt Count 382 Seg Neutrophils % 81.5 H Lymphocytes % 8.3 L Monocytes % 9.6 Eosinophils % 0.2 Basophils % 0.4 Absolute Neutrophils 14.5 H Absolute Lymphocytes 1.5 Absolute Monocytes 1.7 H Absolute Eosinophils 0.0 Absolute Basophils 0.1 Sodium 140.3 Potassium 4.1 D Chloride 107 Carbon Dioxide 24 Anion Gap 9 BUN 16 Creatinine 0.91 Est GFR ( Amer) > 60 Est GFR (Non-Af Amer) > 60 Glucose 107 Calcium 8.4 Impressions: Abdomen/Pelvis CT 06/19/18 17:26 IMPRESSION: Thickened and fluid-filled appendix in the right lower quadrant measuring 1.6 cm with extensive surrounding fat stranding, consistent with acute appendicitis. No evidence of perforation or abscess. KUB X-Ray 06/20/18 02:29 IMPRESSION: Satisfactory positioning of the nasogastric tube copyright 2010 [employer]- All Rights Reserved Assessment & Plan - Diagnosis (1) Acute appendicitis Qualifiers: Acute appendicitis type: with localized peritonitis Appendicitis gangrene presence: unspecified whether gangrene present Appendicitis perforation presence: without perforation Appendicitis abscess presence: without abscess Qualified Code(s): K35.30 - Acute appendicitis with localized peritonitis, without perforation or gangrene Is this a current diagnosis for this admission?: Yes Plan: Impression: Patient now 48 hours status post laparoscopic conversion to open appendectomy with appropriate postoperative course, wound left open, leukocytosis improving; remains on intravenous antibiotics. Recommendations: 1. We will start clear liquids; start p.o. Toradol 2. Out of bed to chair ambulating. 3. Anticipate wound reapproximation tomorrow at bedside.
[2018-06-22] MEDS: HYDROMORPHONE HCL INJ/PF 2 MG/ML AMPULE IV PRN ×6 (01:41→22:45)
[2018-06-22] MEDS: KETOROLAC TROMETHAMINE INJ/PF 30 MG/1 ML SDV IV SCH ×4 (04:20→21:26)
[2018-06-22] MEDS: METRONIDAZOLE 500 MG/NS RTU 500 MG/100 ML RTUPB IV SCH ×3 (06:40→21:26)
[2018-06-22] MEDS: MORPHINE SULFATE 10 MG/ML INJ IV PRN (08:07)
[2018-06-22] MEDS: CIPROFLOXACIN 400 MG/D5W RTU 400 MG/200 ML RTUPB IV SCH ×2 (09:04→21:27)
[2018-06-22] MEDS: NORMAL SALINE 1000 ML 1,000 ML IV PRN ×3 (09:04→22:46)
[2018-06-22] MEDS: NICOTINE 21 MG/24 HR PATCH.TD24 TD SCH (09:04)
[2018-06-22] MEDS: KETOROLAC TROMETHAMINE 10 MG TABLET PO PRN (09:06)
[2018-06-22] MEDS: ENOXAPARIN SODIUM INJ 40 MG/0.4 ML DISP.SYRIN SUBCUT SCH (09:06)
--- NOTE | 2018-06-22 17:50 | PDOC PROGRESS REPORT ---
Subjective Progress Note for:: 06/22/18 Subjective:: no pains tolerating diet Reason For Visit: ACUTE APPENDICITIS Physical Exam Vital Signs: Temp Pulse Resp BP Pulse Ox 97.9 F 85 18 114/73 94 06/22/18 12:36 06/22/18 12:36 06/22/18 12:36 06/22/18 12:36 06/22/18 12:36 Intake & Output 06/21/18 06/22/18 06/23/18 06:59 06:59 06:59 Intake Total 2940 3624 1700 Output Total 753 1180 Balance 2187 2444 1700 Weight 125 kg 125 kg Exam: abdomen is soft and non tender. Incision looks clean Results Laboratory Results: 06/21/18 04:20 06/21/18 04:20 Impressions: Abdomen/Pelvis CT 06/19/18 17:26 IMPRESSION: Thickened and fluid-filled appendix in the right lower quadrant measuring 1.6 cm with extensive surrounding fat stranding, consistent with acute appendicitis. No evidence of perforation or abscess. KUB X-Ray 06/20/18 02:29 IMPRESSION: Satisfactory positioning of the nasogastric tube copyright 2011 [employer]- All Rights Reserved Assessment & Plan - Time Time Spent with patient: 15-24 minutes - Inpatient Certification Medical Necessity: Need for IV Antibiotics - Plan Summary Plan Summary: Incision closed by tying sutures left at the time of surgery Continue IV antibiotics for E Coli Increase to soft diet
[2018-06-23] MEDS: HYDROMORPHONE HCL INJ/PF 2 MG/ML AMPULE IV PRN ×7 (01:52→23:21)
[2018-06-23] MEDS: KETOROLAC TROMETHAMINE INJ/PF 30 MG/1 ML SDV IV SCH ×2 (03:48→09:18)
[2018-06-23] MEDS: METRONIDAZOLE 500 MG/NS RTU 500 MG/100 ML RTUPB IV SCH ×3 (05:43→21:40)
[2018-06-23 05:53] LABS: ABSOLUTE BASOPHILS # (AUTO) 0.1 10^3/uL (0.0-0.2); ABSOLUTE EOSINOPHILS # (AUTO) 0.4 10^3/uL (0.0-0.6); ABSOLUTE LYMPHOCYTES (AUTO) 1.8 10^3/uL (0.5-4.7); ABSOLUTE MONOCYTES (AUTO) 1.3 10^3/uL (0.1-1.4); ABSOLUTE NEUT (AUTO) 9.5 10^3/uL (1.7-8.2); BASOPHILS % (AUTO) 0.8 % (0-2); HEMATOCRIT 32.2 % (37.9-51.0); HEMOGLOBIN 11.1 g/dL (13.5-17.0); LYMPHOCYTES % (AUTO) 13.6 % (13-45); MEAN CORPUSCULAR HEMOGLOBIN 31.5 pg (27.0-33.4); MEAN CORPUSCULAR HGB CONC 34.4 g/dL (32.0-36.0); MEAN CORPUSCULAR VOLUME 92 fl (80-97); MONOCYTES % (AUTO) 9.7 % (3-13); PLATELET COUNT 435 10^3/uL (150-450); RED BLOOD COUNT 3.51 10^6/uL (4.35-5.55); RED CELL DISTRIBUTION WIDTH 12.4 % (11.5-14.0); SEGMENTED NEUTROPHILS % (AUTO) 72.9 % (42-78); TOTAL CELLS COUNTED % (AUTO) 100 %
[2018-06-23] MEDS: CIPROFLOXACIN 400 MG/D5W RTU 400 MG/200 ML RTUPB IV SCH ×2 (09:18→21:40)
[2018-06-23] MEDS: ENOXAPARIN SODIUM INJ 40 MG/0.4 ML DISP.SYRIN SUBCUT SCH (09:19)
[2018-06-23] MEDS: NICOTINE 21 MG/24 HR PATCH.TD24 TD SCH (09:19)
--- NOTE | 2018-06-23 13:23 | PDOC PROGRESS REPORT ---
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 Margins are not involved but has subserosal extension. Tumor at the orifice of the appendix about 2.5 cm. Patient immediately informed .and discussed need for cancer surgery that is at least a right hemicolectomy . He understand and agrees. Reason For Visit: ACUTE APPENDICITIS Physical Exam Vital Signs: Temp Pulse Resp BP Pulse Ox 98.5 F 89 19 100/65 93 06/22/18 23:17 06/22/18 23:17 06/22/18 23:17 06/22/18 23:17 06/22/18 23:17 Intake & Output 06/22/18 06/23/18 06/24/18 06:59 06:59 06:59 Intake Total 3624 5430 650 Output Total 1180 1112 Balance 2444 4318 650 Weight 125 kg 125 kg Exam: abdomen is soft with skin incision clean and dry. Results Laboratory Results: 06/23/18 04:58 06/21/18 04:20 06/23/18 04:58 WBC 13.0 H RBC 3.51 L Hgb 11.1 L Hct 32.2 L MCV 92 MCH 31.5 MCHC 34.4 RDW 12.4 Plt Count 435 Seg Neutrophils % 72.9 Lymphocytes % 13.6 Monocytes % 9.7 Eosinophils % 3.0 Basophils % 0.8 Absolute Neutrophils 9.5 H Absolute Lymphocytes 1.8 Absolute Monocytes 1.3 Absolute Eosinophils 0.4 Absolute Basophils 0.1 06/19/18 22:20 Abdomen - Abscess Gram Stain - Final 06/19/18 22:20 Abdomen - Abscess Wound Culture - Final Escherichia Coli Bacteroides Fragilis Group Prevotella Species Impressions: Abdomen/Pelvis CT 06/19/18 17:26 IMPRESSION: Thickened and fluid-filled appendix in the right lower quadrant measuring 1.6 cm with extensive surrounding fat stranding, consistent with acute appendicitis. No evidence of perforation or abscess. KUB X-Ray 06/20/18 02:29 IMPRESSION: Satisfactory positioning of the nasogastric tube copyright 2010 [employer]- All Rights Reserved Assessment & Plan - Diagnosis (1) Carcinoma of appendix Is this a current diagnosis for this admission?: Yes - Time Time Spent with patient: 15-24 minutes - Inpatient Certification Medical Necessity: Need for IV Antibiotics, Need for Surgery - Plan Summary Plan Summary: D/W Dr Rocha who will do colonoscopy tomorrow then follow Right hemicolectomy if no synchronous lesion. Place on bowel prep
[2018-06-23] MEDS ORDERED: PEG 3350/NA SULF,BICARB,CL/KCL 4000 ML PO ONE (14:00)
[2018-06-23] MEDS ORDERED: LANSOPRAZOLE 15 MG TAB.RAP.DR PO ONE (16:00)
[2018-06-23] MEDS: MORPHINE SULFATE 10 MG/ML INJ IV PRN (21:39)
[2018-06-23] MEDS: KETOROLAC TROMETHAMINE 10 MG TABLET PO PRN (23:25)
[2018-06-24] MEDS: HYDROMORPHONE HCL INJ/PF 2 MG/ML AMPULE IV PRN ×2 (02:52→08:27)
[2018-06-24] MEDS: METRONIDAZOLE 500 MG/NS RTU 500 MG/100 ML RTUPB IV SCH ×3 (05:06→23:45)
[2018-06-24] MEDS: LANSOPRAZOLE 15 MG TAB.RAP.DR PO SCH (05:07)
[2018-06-24] MEDS: NORMAL SALINE 1000 ML 1,000 ML IV PRN ×2 (05:07→22:17)
--- NOTE | 2018-06-24 07:57 | PDOC PROGRESS REPORT ---
Subjective Progress Note for:: 06/24/18 Reason For Visit: ACUTE cancer of the appendix. Physical Exam Vital Signs: Temp Pulse Resp BP Pulse Ox 100.2 F 105 H 18 147/73 H 94 06/24/18 01:00 06/24/18 01:00 06/24/18 01:00 06/24/18 01:00 06/24/18 01:00 Intake & Output 06/23/18 06/24/18 06/25/18 06:59 06:59 06:59 Intake Total 5430 3682 Output Total 1112 1007 Balance 4318 2675 Weight 125 kg 125.7 kg General appearance: PRESENT: no acute distress Mouth exam: PRESENT: moist Neck exam: PRESENT: full ROM Respiratory exam: PRESENT: clear to auscultation uzair Cardiovascular exam: PRESENT: RRR GI/Abdominal exam: PRESENT: other - midline wound approximated abd soft non tender Extremities exam: PRESENT: full ROM Neurological exam: PRESENT: oriented to person, oriented to place, oriented to time, oriented to situation, reflexes normal Skin exam: PRESENT: dry Results Laboratory Results: 06/23/18 04:58 06/21/18 04:20 06/19/18 22:20 Abdomen - Abscess Gram Stain - Final 06/19/18 22:20 Abdomen - Abscess Wound Culture - Final Escherichia Coli Bacteroides Fragilis Group Prevotella Species Impressions: Abdomen/Pelvis CT 06/19/18 17:26 IMPRESSION: Thickened and fluid-filled appendix in the right lower quadrant measuring 1.6 cm with extensive surrounding fat stranding, consistent with acute appendicitis. No evidence of perforation or abscess. KUB X-Ray 06/20/18 02:29 IMPRESSION: Satisfactory positioning of the nasogastric tube copyright 2011 [employer]- All Rights Reserved Status: Pending Assessment & Plan - Plan Summary Plan Summary: plan is for Diagnostic colonsocopy and right hemicolectomy for rx of the cancer of appendix pt has a family hx of colon cancer and colonsocopy is to be performed first prior the the hemicolectomy we discussed the possibility of a secondary cancer seen elsewhere in the colon and the need for an extended colectomy. pt is in agreement with this I explained risks and benifits of the procedure to pt including bleeding, infection, leak from the anastomosis abscess, pe, mi, cva, pneumonia, hernia, need for additional surgery possible related to complications pt understands and agrees to proceed.
[2018-06-24] MEDS ORDERED: DEXAMETHASONE SOD PHOSPHATE INJ 4 MG/1 ML VIAL ONE (08:04)
[2018-06-24] MEDS ORDERED: ONDANSETRON HCL INJ/PF 4 MG/2 ML SDV ONE (08:04)
[2018-06-24] MEDS ORDERED: KETOROLAC TROMETHAMINE 60 MG/2 ML SDV ONE (08:04)
[2018-06-24] MEDS ORDERED: NEOSTIGMINE METHYLSULFATE 10 MG/10 ML VIAL ONE (08:04)
[2018-06-24] MEDS ORDERED: ROCURONIUM BROMIDE INJ 50 MG/5 ML VIAL IV ONE (08:04)
[2018-06-24] MEDS ORDERED: SUCCINYLCHOLINE CHLORIDE INJ 200 MG/10 ML VIAL ONE (08:04)
[2018-06-24] MEDS ORDERED: GLYCOPYRROLATE 1 MG/5 ML SYRINGE ONE (08:04)
[2018-06-24] MEDS ORDERED: BUPIVACAINE HCL 0.5%-EPI 1:200000 INJ/PF 30 ML VIAL ONE (08:17)
[2018-06-24] MEDS: CIPROFLOXACIN 400 MG/D5W RTU 400 MG/200 ML RTUPB IV SCH ×2 (09:22→22:18)
[2018-06-24] MEDS: ENOXAPARIN SODIUM INJ 40 MG/0.4 ML DISP.SYRIN SUBCUT SCH (09:24)
[2018-06-24] MEDS: NICOTINE 21 MG/24 HR PATCH.TD24 TD SCH (09:25)
--- NOTE | 2018-06-24 09:35 | EKG REPORT ---
SEVERITY:- ABNORMAL ECG - SINUS RHYTHM NONSPECIFIC T ABNORMALITIES, INFERIOR LEADS : Confirmed by: John Vargas 24-Jun-2018 09:34:43
[2018-06-24] MEDS ORDERED: METRONIDAZOLE 500 MG/NS RTU 500 MG/100 ML RTUPB IV ONE (12:15)
[2018-06-24] MEDS ORDERED: HYDROMORPHONE HCL INJ/PF 2 MG/ML AMPULE ONE (12:45)
[2018-06-24] MEDS ORDERED: EPHEDRINE SULFATE INJ 50 MG/1 ML AMPULE ONE (12:45)
[2018-06-24] MEDS ORDERED: FENTANYL CITRATE INJ/PF 100 MCG/2 ML AMPUL ONE (12:45)
[2018-06-24] MEDS ORDERED: MIDAZOLAM 2 MG/2 ML INJ ONE (12:45)
[2018-06-24] MEDS ORDERED: PROPOFOL INJ 200 MG/20 ML VIAL IV ONE (12:46)
[2018-06-24] MEDS ORDERED: ACETAMINOPHEN 1,000 MG/100 ML RTUPB IV ONE (12:46)
[2018-06-24] MEDS ORDERED: DIPHENHYDRAMINE HCL 50 MG/ML VIAL IV PRN (14:05)
[2018-06-24] MEDS ORDERED: MORPHINE SULFATE 10 MG/ML INJ IV PRN (14:05)
[2018-06-24] MEDS ORDERED: MEPERIDINE HCL/PF INJ 25 MG/1 ML DISP.SYRIN IV PRN (14:05)
[2018-06-24] MEDS ORDERED: FENTANYL CITRATE INJ/PF 100 MCG/2 ML AMPUL IV PRN ×3 (14:05)
[2018-06-24] MEDS ORDERED: PROMETHAZINE HCL INJ 25 MG/1 ML VIAL IV PRN (14:05)
--- NOTE | 2018-06-24 15:52 | Operative Report ---
Nonrecallable Operative Report DATE OF SURGERY: 06/24/18 PREOPERATIVE DIAGNOSIS: adenocarcinoma of appendix POSTOPERATIVE DIAGNOSIS: adenocarcinoma of appendix OPERATION: right hemicolectomy and rt hepatic metastatectomy, colonoscopy SURGEON: SHAISTA VASQUEZ 1ST DOT COMPLIANCE SPECIALIST: JEANETTE GORE ANESTHESIA: GA TISSUE REMOVED OR ALTERED: rt colon, portion of rt hepatic lobe. COMPLICATIONS: none ESTIMATED BLOOD LOSS: 100 INTRAOPERATIVE FINDINGS: see dictation
[2018-06-24] MEDS: FENTANYL CITRATE INJ/PF 100 MCG/2 ML AMPUL ONE ×2 (16:05→16:10)
[2018-06-24] MEDS ORDERED: PROMETHAZINE HCL INJ 25 MG/1 ML VIAL ONE (16:06)
[2018-06-24] MEDS: HYDROMORPHONE HCL INJ/PF 2 MG/ML AMPULE ONE ×2 (16:30→16:50)
[2018-06-24] MEDS ORDERED: MORPHINE SULFATE 60 MG/60 ML RTUINJ IV PRN (18:00)
[2018-06-24] MEDS: ONDANSETRON HCL INJ/PF 4 MG/2 ML SDV IV PRN (19:42)
[2018-06-24] MEDS: HEPARIN SOD (PORCINE) 5,000 UNIT/ML 1 ML SYRINGE SUBCUT SCH (22:20)
[2018-06-24] MEDS: FAMOTIDINE INJ/PF 20 MG/2 ML SDV IV SCH (22:20)
--- NOTE | 2018-06-24 23:23 | OPERATIVE REPORT E ---
Operative Report NAME: HEMANTH BOTELLO : 1975 AGE: 43Y DATE OF SURGERY: 06/24/2018 ROOM: 430 PREOPERATIVE DIAGNOSIS: ADENOCARCINOMA OF THE APPENDIX. POSTOPERATIVE DIAGNOSIS: ADENOCARCINOMA OF THE APPENDIX. OPERATIVE PROCEDURE: 1. Colonoscopy. 2. Right hemicolectomy. 3. Hepatic metastasectomy right liver lobe. SURGEON: SHAISTA VASQUEZ M.D. NARCOTICS DETECTIVE: Yocasta Gaytan PA-C. Yocasta Gaytan was present during the entire operation for wound retraction, help with suturing, help with retraction, help with dissection, and closure. INDICATIONS FOR OPERATION: This is a 43-year-old male who recently underwent an appendectomy for what was felt was a perforated appendicitis. He required a midline laparotomy for the appendectomy and subsequent to that had been doing well in the hospital. Pathology came back approximately 2 days ago positive for adenocarcinoma of the appendix. Because of this it was elected to return the patient to the operating for appropriate oncologic operation. The patient has a significant family history of colon cancer. This planned procedure was accomplished. DETAILS OF PROCEDURE: The patient was brought to the operating room in an awake, alert, and stable condition. Placed on the operating room table in the supine position, induced under general anesthesia, intubated. Before placing the patient on the operating table on the transport gurney we performed a colonoscopy. Using the Olympus colonoscope it was easily passed into the rectum and then advanced up the sigmoid colon, descending colon to the proximal transverse colon. Bowel prep was fair. There was some liquid stool that remained within the dependent portions of the colon and it took some suctioning to remove it to get a good visualization of the mucosa. However, we were able to visualize the mucosa from the proximal transverse colon all the way around the splenic flexure to the descending colon and sigmoid colon. There was no evidence of any other synchronous lesions that could be identified. We removed the colonoscope. The patient was then placed on the operating table. In a prone position a Harris catheter was placed and his abdomen was prepped and draped in the usual sterile fashion for the procedure. He had previous skin sutures that were nylon, that were previously placed, and these were removed with Metzenbaum scissors. Once all the skin sutures were removed the wound easily opened with digital dissection down to the fascia and the fascia had been previously closed with a single line of 0 PDS, and this was excised. We gained access to the abdominal cavity. There was some small amount of thick fluid that was in the pelvis, this was suctioned dry. The omentum was fixed somewhat into the pelvis in the right lower quadrant and this was easily broken up with digital dissection. Once we removed the omentum we identified the small bowel and the transverse colon. I then identified the cecum with digital dissection. There was some looped up small bowel in the right lower quadrant along with the cecum that needed some mild dissection to break up the interloop adhesions. Once this was done we then turned attention to mobilization of the right colon. This was done along the white line and controlled with Bovie cautery, incising the peritoneal reflection and mobilizing the right colon and small bowel medially. I continued this dissection up around the liver. The hepatic flexure was mobilized with Bovie cautery to the mid transverse colon. There was matted omentum on the right side and I elected to resect that inflamed matted omentum on the right side of the colon and leave the omentum on the left portion of the transverse colon. Therefore, I incised the omentum at its portion with a ligature device all the way up to the transverse colon. We then divided the transverse colon just to the right of the middle colic artery, and this was done with the Endo ZEENAT stapler with a blue load. We then turned attention to the terminal ileum and mobilized the peritoneal attachments to the terminal ileum and then came across it about 5 cm proximal to the end of it with 1 firing of the Endo ZEENAT stapler with a blue load. We then began our division of the colonic mesentery with the ligature device keeping the dissection close to the takeoff of the ileocolic artery and the middle colic artery. We incised all the mesentery along the base of the ileocolic and right colic artery all the way to the middle colic artery. Once this was done we were able to easily remove the specimen as the transverse colon was already divided. We removed it along with its associated omentum and sent that for pathology. We then were able to easily bring up the terminal ileum to the mid transverse colon and created an ileocolonic anastomosis between it and the transverse colon in a 2 layer fashion, the outer layer being 3-0 silk and the inner layer being a running 3-0 Vicryl suture. We closed then the mesenteric defect with 3-0 Maxon suture. Once this was completed we copiously irrigated the abdominal cavity with normal saline and suctioned dry. I palpated the pelvis, there was no evidence of any disease. However, palpation of the right lobe of the liver in segment 7, anteriorly there was a palpable nodule. I could not visualize it well. Therefore, I had to extend the proximal incision up to just below the xyphoid with the 10 blade and then Bovie cautery for the fascia. Once we were able to do this I placed a Bookwalter retractor and placed a Bodywall retractor underneath the costal margin on the right and I identified the fact that it looked like a hepatic metastasis. There was no other palpable metastatic disease in the abdominal cavity or in the liver, I elected to resect it at this time. The size of the metastasis was about the size of a quarter. After placing some laparotomy sponges above the right lobe of the liver to bring it down, we were able to incise circumferentially around the metastasis with Bovie cautery keeping the distance about 1.5 to 2 cm away from the edges of the tumor. Once this was accomplished we came across deeply, about a centimeter, and excised it with Bovie cautery. I did note that the deep margin of the tumor was closed and, therefore, I excised a second margin at the deep margin portion of this tumor in the segment 7 of the right lobe of the liver with Bovie cautery. I sent that as a separate specimen as the margin. Once this was completed I obtained hemostasis of the bed of the liver with Bovie cautery and then using FLOSEAL and Surgicel we were able to get hemostasis. Once this was completed I copiously irrigated the abdominal cavity with normal saline, suctioned dry. I left the Viet-Leonard drain in the right upper quadrant next to the liver dissection for any possible biliary leak. The Viet-Leonard drain was brought out through a separate stab wound in the right lower quadrant of the abdomen. We then returned the small bowel and colon to its normal anatomic location, laid the omentum on top, and closed the midline fascia with a running double looped #1 PDS suture. After this we closed the skin with standard skin clips which completed the procedure. Estimated blood loss for the procedure was approximately 100 mL. Sponge and needle counts were correct x2. The patient was awakened in the operating room, extubated, and transferred to recovery in stable condition. No complications. DICTATING PHYSICIAN: SHAISTA VASQUEZ M.D. [id number] PHY#: [id number] ID: [id number] JOB#: [id number] ACCT: [id number] cc:SHAISTA VASQUEZ M.D. >
[2018-06-25] MEDS: ONDANSETRON HCL INJ/PF 4 MG/2 ML SDV IV PRN ×3 (02:12→15:42)
[2018-06-25] MEDS: LANSOPRAZOLE 15 MG TAB.RAP.DR PO SCH (05:19)
[2018-06-25] MEDS: METRONIDAZOLE 500 MG/NS RTU 500 MG/100 ML RTUPB IV SCH ×3 (05:19→21:47)
--- NOTE | 2018-06-25 07:23 | PDOC PROGRESS REPORT ---
Subjective Progress Note for:: 06/25/18 Reason For Visit: ACUTE APPENDICITIS Physical Exam Vital Signs: Temp Pulse Resp BP Pulse Ox 98.7 F 89 19 139/79 H 94 06/24/18 23:16 06/24/18 23:16 06/24/18 23:16 06/24/18 23:16 06/24/18 23:16 Intake & Output 06/24/18 06/25/18 06/26/18 06:59 06:59 06:59 Intake Total 3682 5700 Output Total 1007 3400 750 Balance 2675 2300 -750 Weight 125.7 kg 136.7 kg General appearance: PRESENT: no acute distress Head exam: PRESENT: atraumatic Eye exam: PRESENT: EOMI Mouth exam: PRESENT: moist Neck exam: PRESENT: full ROM Respiratory exam: PRESENT: clear to auscultation uzair Pulses: PRESENT: normal radial pulses, normal femoral pulses - soft, wound clean,dry no bs Extremities exam: PRESENT: full ROM Musculoskeletal exam: PRESENT: full ROM Neurological exam: PRESENT: alert, oriented to time, oriented to situation, reflexes normal Skin exam: PRESENT: dry Results Laboratory Results: 06/23/18 04:58 06/21/18 04:20 Impressions: Abdomen/Pelvis CT 06/19/18 17:26 IMPRESSION: Thickened and fluid-filled appendix in the right lower quadrant measuring 1.6 cm with extensive surrounding fat stranding, consistent with acute appendicitis. No evidence of perforation or abscess. KUB X-Ray 06/20/18 02:29 IMPRESSION: Satisfactory positioning of the nasogastric tube copyright 2011 [employer]- All Rights Reserved Assessment & Plan - Diagnosis (1) Carcinoma of appendix Is this a current diagnosis for this admission?: Yes - Plan Summary Plan Summary: pod #1 s/p rt hemicolectomy with hepatic metasatectmy 'doing ok this am explained intaop findings to pt including liver lesion awaiting final path, but suspect metastatic will consult oncology ok for him to have ice chips cont ng out of bed.
[2018-06-25 08:58] LABS: ABSOLUTE BASOPHILS # (AUTO) 0.1 10^3/uL (0.0-0.2); ABSOLUTE EOSINOPHILS # (AUTO) 0.1 10^3/uL (0.0-0.6); ABSOLUTE MONOCYTES (AUTO) 1.4 10^3/uL (0.1-1.4); ABSOLUTE NEUT (AUTO) 11.3 10^3/uL (1.7-8.2); BASOPHILS % (AUTO) 0.5 % (0-2); EOSINOPHILS % (AUTO) 0.7 % (0-6); HEMATOCRIT 33.4 % (37.9-51.0); HEMOGLOBIN 11.4 g/dL (13.5-17.0); LYMPHOCYTES % (AUTO) 13.2 % (13-45); MEAN CORPUSCULAR HEMOGLOBIN 31.4 pg (27.0-33.4); MEAN CORPUSCULAR HGB CONC 34.2 g/dL (32.0-36.0); MEAN CORPUSCULAR VOLUME 92 fl (80-97); MONOCYTES % (AUTO) 9.7 % (3-13); PLATELET COUNT 564 10^3/uL (150-450); RED BLOOD COUNT 3.64 10^6/uL (4.35-5.55); RED CELL DISTRIBUTION WIDTH 12.7 % (11.5-14.0); SEGMENTED NEUTROPHILS % (AUTO) 75.9 % (42-78); TOTAL CELLS COUNTED % (AUTO) 100 %; WHITE BLOOD COUNT 14.9 10^3/uL (4.0-10.5)
[2018-06-25] MEDS: FAMOTIDINE INJ/PF 20 MG/2 ML SDV IV SCH ×2 (09:04→21:47)
[2018-06-25 09:21] LABS: ANION GAP 6 (5-19); BLOOD UREA NITROGEN 11 mg/dL (7-20); CALCIUM 8.1 mg/dL (8.4-10.2); CARBON DIOXIDE 29 mmol/L (22-30); CHLORIDE 107 mmol/L (98-107); GLUCOSE 89 mg/dL (75-110); POTASSIUM 4.3 mmol/L (3.6-5.0); SODIUM 142.2 mmol/L (137-145)
[2018-06-25] MEDS: PHENOL/SODIUM PHENOLATE 100 SPRAY/177 ML BOTTLE PO PRN (10:40)
[2018-06-25] MEDS: HEPARIN SOD (PORCINE) 5,000 UNIT/ML 1 ML SYRINGE SUBCUT SCH ×2 (11:07→21:47)
[2018-06-25] MEDS: CIPROFLOXACIN 400 MG/D5W RTU 400 MG/200 ML RTUPB IV SCH ×2 (11:08→21:47)
[2018-06-25] MEDS: NORMAL SALINE 1000 ML 1,000 ML IV PRN ×2 (11:18→19:25)
[2018-06-25] MEDS: HYDROMORPHONE HCL INJ/PF 2 MG/ML AMPULE IV PRN ×4 (12:45→21:56)
[2018-06-26] MEDS: HYDROMORPHONE HCL INJ/PF 2 MG/ML AMPULE IV PRN ×10 (00:57→23:14)
[2018-06-26] MEDS: NORMAL SALINE 1000 ML 1,000 ML IV PRN ×3 (02:25→19:25)
[2018-06-26] MEDS: METRONIDAZOLE 500 MG/NS RTU 500 MG/100 ML RTUPB IV SCH ×3 (05:42→21:10)
[2018-06-26 07:53] LABS: ABSOLUTE BASOPHILS # (AUTO) 0.1 10^3/uL (0.0-0.2); ABSOLUTE EOSINOPHILS # (AUTO) 0.4 10^3/uL (0.0-0.6); ABSOLUTE LYMPHOCYTES (AUTO) 1.8 10^3/uL (0.5-4.7); ABSOLUTE MONOCYTES (AUTO) 1.2 10^3/uL (0.1-1.4); BASOPHILS % (AUTO) 0.7 % (0-2); EOSINOPHILS % (AUTO) 2.8 % (0-6); HEMATOCRIT 33.5 % (37.9-51.0); HEMOGLOBIN 11.3 g/dL (13.5-17.0); LYMPHOCYTES % (AUTO) 13.3 % (13-45); MEAN CORPUSCULAR HEMOGLOBIN 30.7 pg (27.0-33.4); MEAN CORPUSCULAR HGB CONC 33.6 g/dL (32.0-36.0); MEAN CORPUSCULAR VOLUME 92 fl (80-97); MONOCYTES % (AUTO) 8.9 % (3-13); PLATELET COUNT 579 10^3/uL (150-450); RED BLOOD COUNT 3.66 10^6/uL (4.35-5.55); RED CELL DISTRIBUTION WIDTH 12.6 % (11.5-14.0); SEGMENTED NEUTROPHILS % (AUTO) 74.3 % (42-78); TOTAL CELLS COUNTED % (AUTO) 100 %; WHITE BLOOD COUNT 13.5 10^3/uL (4.0-10.5)
[2018-06-26 08:13] LABS: ANION GAP 8 (5-19); BLOOD UREA NITROGEN 9 mg/dL (7-20); CALCIUM 8.5 mg/dL (8.4-10.2); CARBON DIOXIDE 29 mmol/L (22-30); CHLORIDE 103 mmol/L (98-107); GLUCOSE 101 mg/dL (75-110); POTASSIUM 4.4 mmol/L (3.6-5.0); SODIUM 139.6 mmol/L (137-145)
[2018-06-26] MEDS: FAMOTIDINE INJ/PF 20 MG/2 ML SDV IV SCH ×2 (10:26→21:10)
[2018-06-26] MEDS: CIPROFLOXACIN 400 MG/D5W RTU 400 MG/200 ML RTUPB IV SCH ×2 (10:27→21:10)
[2018-06-26] MEDS: HEPARIN SOD (PORCINE) 5,000 UNIT/ML 1 ML SYRINGE SUBCUT SCH ×2 (10:27→21:10)
--- NOTE | 2018-06-26 12:18 | Progress Note ---
Provider Note Provider Note: Hematology/Oncology consultation was received and I did introduce myself to the patient. However, pathology report from the hemicolectomy is still pending and any recommendations will be based on this information. I have explained to the patient that I will be seeing him, but would prefer to give full consultation report after pathology available so that recommendations can be given and all questions can be answered. Please call me with any concerns. Thank you.
--- NOTE | 2018-06-26 14:45 | PDOC PROGRESS REPORT ---
Subjective Progress Note for:: 06/26/18 Subjective:: incisional pains Reason For Visit: ACUTE APPENDICITIS Physical Exam Vital Signs: Temp Pulse Resp BP Pulse Ox 98.5 F 92 16 114/68 87 L 06/26/18 09:46 06/26/18 09:46 06/26/18 09:46 06/26/18 09:46 06/26/18 09:46 Intake & Output 06/25/18 06/26/18 06/27/18 06:59 06:59 06:59 Intake Total 5700 4780 1200 Output Total 3400 4650 Balance 2300 130 1200 Weight 136.7 kg 136.7 kg Exam: is soft not distended. JULIO C drain small amount NGT has 500 ccs greenish fluid Continue NGT Want s pain med q 2 instead of q 3 hrs. Results Laboratory Results: 06/26/18 07:42 06/26/18 07:42 06/26/18 06/26/18 07:42 07:42 WBC 13.5 H RBC 3.66 L Hgb 11.3 L Hct 33.5 L MCV 92 MCH 30.7 MCHC 33.6 RDW 12.6 Plt Count 579 H Seg Neutrophils % 74.3 Lymphocytes % 13.3 Monocytes % 8.9 Eosinophils % 2.8 Basophils % 0.7 Absolute Neutrophils 10.0 H Absolute Lymphocytes 1.8 Absolute Monocytes 1.2 Absolute Eosinophils 0.4 Absolute Basophils 0.1 Sodium 139.6 Potassium 4.4 Chloride 103 Carbon Dioxide 29 Anion Gap 8 BUN 9 Creatinine 0.74 Est GFR ( Amer) > 60 Est GFR (Non-Af Amer) > 60 Glucose 101 Calcium 8.5 Impressions: Abdomen/Pelvis CT 06/19/18 17:26 IMPRESSION: Thickened and fluid-filled appendix in the right lower quadrant measuring 1.6 cm with extensive surrounding fat stranding, consistent with acute appendicitis. No evidence of perforation or abscess. 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
[2018-06-27] MEDS: HYDROMORPHONE HCL INJ/PF 2 MG/ML AMPULE IV PRN ×7 (01:46→21:18)
[2018-06-27 08:23] LABS: ABSOLUTE BASOPHILS # (AUTO) 0.1 10^3/uL (0.0-0.2); ABSOLUTE EOSINOPHILS # (AUTO) 0.5 10^3/uL (0.0-0.6); ABSOLUTE MONOCYTES (AUTO) 1.1 10^3/uL (0.1-1.4); ABSOLUTE NEUT (AUTO) 8.4 10^3/uL (1.7-8.2); BASOPHILS % (AUTO) 1.1 % (0-2); HEMATOCRIT 33.7 % (37.9-51.0); HEMOGLOBIN 11.4 g/dL (13.5-17.0); LYMPHOCYTES % (AUTO) 16.3 % (13-45); MEAN CORPUSCULAR VOLUME 91 fl (80-97); MONOCYTES % (AUTO) 9.2 % (3-13); PLATELET COUNT 632 10^3/uL (150-450); RED BLOOD COUNT 3.69 10^6/uL (4.35-5.55); RED CELL DISTRIBUTION WIDTH 12.8 % (11.5-14.0); SEGMENTED NEUTROPHILS % (AUTO) 69.4 % (42-78); TOTAL CELLS COUNTED % (AUTO) 100 %
[2018-06-27 08:37] LABS: ANION GAP 9 (5-19); BLOOD UREA NITROGEN 9 mg/dL (7-20); CALCIUM 8.5 mg/dL (8.4-10.2); CARBON DIOXIDE 27 mmol/L (22-30); CHLORIDE 105 mmol/L (98-107); GLUCOSE 95 mg/dL (75-110); POTASSIUM 4.2 mmol/L (3.6-5.0); SODIUM 141.4 mmol/L (137-145)
--- NOTE | 2018-06-27 09:23 | PDOC PROGRESS REPORT ---
Subjective Progress Note for:: 06/27/18 Reason For Visit: ACUTE APPENDICITIS Physical Exam Vital Signs: Temp Pulse Resp BP Pulse Ox 99.1 F 84 17 127/71 H 94 06/27/18 07:24 06/27/18 07:24 06/27/18 07:24 06/27/18 07:24 06/27/18 07:24 Intake & Output 06/26/18 06/27/18 06/28/18 06:59 06:59 06:59 Intake Total 4780 3320 Output Total 4650 3595 50 Balance 130 -275 -50 Weight 136.7 kg 136.7 kg General appearance: PRESENT: cooperative, hard of hearing, morbidly obese GI/Abdominal exam: PRESENT: distended - abd softly distended +bs passing stool from around and through the rectal tube, soft Results Laboratory Results: 06/27/18 08:00 06/27/18 08:00 06/27/18 06/27/18 08:00 08:00 WBC 12.0 H RBC 3.69 L Hgb 11.4 L Hct 33.7 L MCV 91 MCH 31.0 MCHC 34.0 RDW 12.8 Plt Count 632 H Seg Neutrophils % 69.4 Lymphocytes % 16.3 Monocytes % 9.2 Eosinophils % 4.0 Basophils % 1.1 Absolute Neutrophils 8.4 H Absolute Lymphocytes 2.0 Absolute Monocytes 1.1 Absolute Eosinophils 0.5 Absolute Basophils 0.1 Sodium 141.4 Potassium 4.2 Chloride 105 Carbon Dioxide 27 Anion Gap 9 BUN 9 Creatinine 0.73 Est GFR ( Amer) > 60 Est GFR (Non-Af Amer) > 60 Glucose 95 Calcium 8.5 Impressions: Abdomen/Pelvis CT 06/19/18 17:26 IMPRESSION: Thickened and fluid-filled appendix in the right lower quadrant measuring 1.6 cm with extensive surrounding fat stranding, consistent with acute appendicitis. No evidence of perforation or abscess. KUB X-Ray 06/20/18 02:29 IMPRESSION: Satisfactory positioning of the nasogastric tube copyright 2011 [employer]- All Rights Reserved Assessment & Plan - Diagnosis (1) Carcinoma of appendix Is this a current diagnosis for this admission?: Yes - Plan Summary Plan Summary: will dc rectal tube. family has discussed an dnr status with me and with medicine they wish to make pt a dnr they do not want her to have surgery they are interested in completing dnr paper work today and would like to discuss hospice I will put in a consuslt for hospice. please contact surgery for any further problems.
[2018-06-27] MEDS: HEPARIN SOD (PORCINE) 5,000 UNIT/ML 1 ML SYRINGE SUBCUT SCH ×2 (10:00→21:17)
[2018-06-27] MEDS: FAMOTIDINE INJ/PF 20 MG/2 ML SDV IV SCH ×2 (10:00→21:18)
[2018-06-27] MEDS: NORMAL SALINE 1000 ML 1,000 ML IV PRN ×2 (10:44→18:00)
[2018-06-28] MEDS: HYDROMORPHONE HCL INJ/PF 2 MG/ML AMPULE IV PRN ×4 (00:52→20:09)
[2018-06-28] MEDS: NORMAL SALINE 1000 ML 1,000 ML IV PRN (00:53)
[2018-06-28 07:22] LABS: ABSOLUTE BASOPHILS # (AUTO) 0.1 10^3/uL (0.0-0.2); ABSOLUTE EOSINOPHILS # (AUTO) 0.5 10^3/uL (0.0-0.6); ABSOLUTE NEUT (AUTO) 8.2 10^3/uL (1.7-8.2); BASOPHILS % (AUTO) 1.1 % (0-2); EOSINOPHILS % (AUTO) 4.1 % (0-6); HEMOGLOBIN 11.7 g/dL (13.5-17.0); LYMPHOCYTES % (AUTO) 17.1 % (13-45); MEAN CORPUSCULAR HEMOGLOBIN 30.5 pg (27.0-33.4); MEAN CORPUSCULAR HGB CONC 33.5 g/dL (32.0-36.0); MEAN CORPUSCULAR VOLUME 91 fl (80-97); MONOCYTES % (AUTO) 8.5 % (3-13); PLATELET COUNT 660 10^3/uL (150-450); RED BLOOD COUNT 3.83 10^6/uL (4.35-5.55); RED CELL DISTRIBUTION WIDTH 12.5 % (11.5-14.0); SEGMENTED NEUTROPHILS % (AUTO) 69.2 % (42-78); TOTAL CELLS COUNTED % (AUTO) 100 %; WHITE BLOOD COUNT 11.8 10^3/uL (4.0-10.5)
[2018-06-28 07:39] LABS: ANION GAP 8 (5-19); BLOOD UREA NITROGEN 9 mg/dL (7-20); CALCIUM 8.5 mg/dL (8.4-10.2); CARBON DIOXIDE 27 mmol/L (22-30); CHLORIDE 106 mmol/L (98-107); GLUCOSE 98 mg/dL (75-110); POTASSIUM 4.3 mmol/L (3.6-5.0); SODIUM 141.1 mmol/L (137-145)
--- NOTE | 2018-06-28 08:04 | PDOC PROGRESS REPORT ---
Subjective Progress Note for:: 06/28/18 Reason For Visit: ACUTE APPENDICITIS Physical Exam Vital Signs: Temp Pulse Resp BP Pulse Ox 98.9 F 78 18 127/75 H 95 06/27/18 23:55 06/27/18 23:55 06/27/18 23:55 06/27/18 23:55 06/27/18 23:55 Intake & Output 06/27/18 06/28/18 06/29/18 06:59 06:59 06:59 Intake Total 4320 3407 Output Total 3595 110 Balance 725 3297 Weight 136.7 kg 136.7 kg General appearance: PRESENT: no acute distress Head exam: PRESENT: atraumatic Respiratory exam: PRESENT: clear to auscultation uzair, unlabored GI/Abdominal exam: PRESENT: soft Musculoskeletal exam: PRESENT: ambulatory, full ROM Neurological exam: PRESENT: alert, awake, oriented to time, oriented to situation Results Laboratory Results: 06/28/18 07:00 06/28/18 07:00 06/27/18 06/27/18 06/28/18 08:00 08:00 07:00 WBC 12.0 H RBC 3.69 L Hgb 11.4 L Hct 33.7 L MCV 91 MCH 31.0 MCHC 34.0 RDW 12.8 Plt Count 632 H Seg Neutrophils % 69.4 Lymphocytes % 16.3 Monocytes % 9.2 Eosinophils % 4.0 Basophils % 1.1 Absolute Neutrophils 8.4 H Absolute Lymphocytes 2.0 Absolute Monocytes 1.1 Absolute Eosinophils 0.5 Absolute Basophils 0.1 Sodium 141.4 141.1 Potassium 4.2 4.3 Chloride 105 106 Carbon Dioxide 27 27 Anion Gap 9 8 BUN 9 9 Creatinine 0.73 0.71 Est GFR ( Amer) > 60 > 60 Est GFR (Non-Af Amer) > 60 > 60 Glucose 95 98 Calcium 8.5 8.5 06/28/18 07:00 WBC 11.8 H RBC 3.83 L Hgb 11.7 L Hct 35.0 L MCV 91 MCH 30.5 MCHC 33.5 RDW 12.5 Plt Count 660 H Seg Neutrophils % 69.2 Lymphocytes % 17.1 Monocytes % 8.5 Eosinophils % 4.1 Basophils % 1.1 Absolute Neutrophils 8.2 Absolute Lymphocytes 2.0 Absolute Monocytes 1.0 Absolute Eosinophils 0.5 Absolute Basophils 0.1 Sodium Potassium Chloride Carbon Dioxide Anion Gap BUN Creatinine Est GFR ( Amer) Est GFR (Non-Af Amer) Glucose Calcium Impressions: Abdomen/Pelvis CT 06/19/18 17:26 IMPRESSION: Thickened and fluid-filled appendix in the right lower quadrant measuring 1.6 cm with extensive surrounding fat stranding, consistent with acute appendicitis. No evidence of perforation or abscess. KUB X-Ray 06/20/18 02:29 IMPRESSION: Satisfactory positioning of the nasogastric tube copyright 2011 [facility]- All Rights Reserved Assessment & Plan - Diagnosis (1) Carcinoma of appendix Is this a current diagnosis for this admission?: Yes - Plan Summary Plan Summary: doing well] passing flatus wound clean dry will advance to full liquids will transition to oral pain meds.
[2018-06-28] MEDS: FAMOTIDINE INJ/PF 20 MG/2 ML SDV IV SCH ×2 (09:24→22:02)
[2018-06-28] MEDS: HEPARIN SOD (PORCINE) 5,000 UNIT/ML 1 ML SYRINGE SUBCUT SCH ×2 (09:24→22:02)
[2018-06-28] MEDS: OXYCODONE-ACETAMINOPHEN 5-325 MG TABLET PO PRN ×2 (11:43→16:41)
[2018-06-29] MEDS: HYDROMORPHONE HCL INJ/PF 2 MG/ML AMPULE IV PRN ×2 (00:18→06:03)
[2018-06-29 07:35] LABS: HEMATOCRIT 37.6 % (37.9-51.0); HEMOGLOBIN 12.9 g/dL (13.5-17.0); MEAN CORPUSCULAR HEMOGLOBIN 31.3 pg (27.0-33.4); MEAN CORPUSCULAR HGB CONC 34.3 g/dL (32.0-36.0); MEAN CORPUSCULAR VOLUME 91 fl (80-97); PLATELET COUNT 702 10^3/uL (150-450); RED BLOOD COUNT 4.12 10^6/uL (4.35-5.55); RED CELL DISTRIBUTION WIDTH 12.7 % (11.5-14.0); WHITE BLOOD COUNT 12.4 10^3/uL (4.0-10.5)
[2018-06-29 07:52] LABS: ANION GAP 10 (5-19); BLOOD UREA NITROGEN 11 mg/dL (7-20); CALCIUM 9.2 mg/dL (8.4-10.2); CARBON DIOXIDE 29 mmol/L (22-30); CHLORIDE 103 mmol/L (98-107); GLUCOSE 107 mg/dL (75-110); POTASSIUM 4.4 mmol/L (3.6-5.0); SODIUM 142.4 mmol/L (137-145)
--- NOTE | 2018-06-29 07:55 | PDOC DISCHARGE SUMMARY ---
General - Admit/Disc Date/PCP Admission Date/Primary Care Provider: 06/19/18 20:47 Discharge Date: 06/29/18 - Discharge Diagnosis (1) Carcinoma of appendix Is this a current diagnosis for this admission?: Yes - Additional Information Resuscitation Status: Full Code Home Medications: No Home Medications 06/20/18 History of Present Illness History of Present Illness: admitted with appendicitis path + for appendicial cancer returned to or for rt hemicolectomy kiera well had a liver met resected at that time path pending pt had a noncomplicated recovery ready for dc home Physical Exam Vital Signs: Temp Pulse Resp BP Pulse Ox 98.6 F 73 18 121/72 97 06/28/18 20:07 06/28/18 20:07 06/28/18 15:00 06/28/18 20:07 06/28/18 20:07 Intake & Output 06/28/18 06/29/18 06/30/18 06:59 06:59 06:59 Intake Total 3407 2403 Output Total 110 40 Balance 3297 2363 Weight 136.7 kg 136 kg General appearance: PRESENT: no acute distress Head exam: PRESENT: normocephalic Respiratory exam: PRESENT: clear to auscultation uzair Cardiovascular exam: PRESENT: RRR Pulses: PRESENT: normal radial pulses, normal femoral pulses GI/Abdominal exam: PRESENT: soft - wound healing well Extremities exam: PRESENT: full ROM Musculoskeletal exam: PRESENT: full ROM, normal inspection Results Laboratory Results: 06/29/18 07:25 06/29/18 07:25 WBC 12.4 H RBC 4.12 L Hgb 12.9 L Hct 37.6 L MCV 91 MCH 31.3 MCHC 34.3 RDW 12.7 Plt Count 702 H Seg Neutrophils % Not Reportable Lymphocytes % Not Reportable Monocytes % Not Reportable Eosinophils % Not Reportable Basophils % Not Reportable Absolute Neutrophils Not Reportable Absolute Lymphocytes Not Reportable Absolute Monocytes Not Reportable Absolute Eosinophils Not Reportable Absolute Basophils Not Reportable Impressions: Abdomen/Pelvis CT 06/19/18 17:26 IMPRESSION: Thickened and fluid-filled appendix in the right lower quadrant measuring 1.6 cm with extensive surrounding fat stranding, consistent with acute appendicitis. No evidence of perforation or abscess. KUB X-Ray 06/20/18 02:29 IMPRESSION: Satisfactory positioning of the nasogastric tube copyright 2011 [employer]- All Rights Reserved Qualifiers - * PATIENT BEING DISCHARGED WITH ANY OF THE FOLLOWING DIAGNOSIS: No VTE patient discharged on overlapping Therapy?: No Reason(s) for not prescribing Overlap Therapy:: Not indicated Reason(s) for not prescribing Anti-thrombolytic therapy:: Not indicated Reason(s) for not prescribing Anti-coagulation therapy:: Not indicated Reason(s) for not prescribing Statins therapy:: Not indicated Reason(s) for not prescribing Aspirin therapy:: Not indicated Reason(s) for not prescribing Statin therapy:: Not indicated Reason(s) for not prescribing ACEI/ARBS:: Not indicated Reason(s) for not prescribing ACEI:: Not indicated Reason(s) for not prescribing ARBS:: Not indicated Reason(s) for not prescribing Warfarin:: Not indicated Reason(s) for not prescribing evidence-based Beta Ivonne:: Not indicated Plan Discharge Plan: dc hometoday will f/u iwth me in 1 wk and with oncology in 1-2 weeks Time Spent: Less than 30 Minutes
--- NOTE | 2018-06-29 07:56 | Discharge Summary ---
Discharge Summary (SDC) - Discharge Final Diagnosis: appendicial cancer Date of Surgery: 06/24/18 Condition: Fair Referrals: ROM CAMPBELL MD [[facility]] - 07/01/18 8:15 am Discharge Activity: Activity As Tolerated Report the Following to Your Physician Immediately: Shortness of Breath, Nausea, Vomiting, Increase in Pain, Yellow Skin, Fever over 101 Degrees, Unusual Bleeding, Redness
[2018-06-29 08:03] LABS: ABSOLUTE LYMPHOCYTES# (MANUAL) 1.7 10^3/uL (0.5-4.7); ABSOLUTE MONOCYTES # (MANUAL) 0.5 10^3/uL (0.1-1.4); ABSOLUTE NEUTROPHILS# (MANUAL) 9.9 10^3/uL (1.7-8.2); BASOPHILS % (MANUAL) 0 % (0-2); EOSINOPHILS % (MANUAL) 2 % (0-6); LYMPHOCYTES % (MANUAL) 14 % (13-45); MONOCYTES % (MANUAL) 4 % (3-13); PLATELET COMMENT INCREASED; RBC MORPHOLOGY COMMENT NORMO-CYTIC/CHROMIC; SEGMENTED NEUTROPHILS % (MAN) 80 % (42-78); TOTAL CELLS COUNTED 100
[2018-06-29 08:36] VITALS: BP 130/70
--- NOTE | 2018-06-29 21:32 | DISCHARGE SUMMARY E ---
Discharge Summary NAME: HEMANTH BOTELLO : 1975 AGE: 43Y ADMITTED: 06/19/2018 DISCHARGED: 06/29/2018 ADMISSION DIAGNOSIS: Acute appendicitis. DISCHARGE DIAGNOSIS: Appendiceal carcinoma. OPERATIVE PROCEDURES: 1. Laparoscopic converted to open appendectomy. 2. Right hemicolectomy with partial hepatic wedge resection. SURGEONS: 1. Rosendo Patrick MD 2. Ace Vasquez MD REASON FOR HOSPITALIZATION/HOSPITAL COURSE: This is a 43-year-old male who was admitted to the hospital on 06/19/2018 with abdominal pain. He underwent a CT scan, which showed possible appendicitis. He was taken to the operating room by Dr. Patrick on 06/20/2018 early in the morning for appendectomy. He underwent a laparoscopic converted to open appendectomy and tolerated that well. Over the course of the next two days, his wound was eventually closed by sutures while on the floor. Subsequent to that, a pathology report came back which was positive for appendiceal carcinoma. He then went back to surgery for a right hemicolectomy. At that time, a possible hepatic metastasis was noted in the right lobe of the liver, and this was also resected. He underwent a right hemicolectomy with an ileotransverse anastomosis. Subsequent to that, he did well. He had a routine benign postoperative course. NG tube remained in place for approximately two days, at which point when he started having bowel function it was removed. He was then slowly started on a clear liquid diet, which was advanced to a regular diet. By the time of discharge, he was afebrile with stable vital signs and is tolerating a regular diet. He is passing bowel movements. His wound is clean and dry, and he is ready for discharge home. During the hospital course, he had a consultation by Dr. Salguero from Oncology, who will see the patient 1 to 2 weeks postoperatively. His current pathology is still pending. He will also follow up with me 1 week after discharge for staple removal and routine followup. DISCHARGE MEDICATIONS: 1. Percocet 10/325 mg 1-2 p.o. q.4 as needed for pain. 2. Colace. He is instructed to resume light activity. No lifting weight anything greater than 10 pounds for the next 4-6 weeks. Increase p.o. fluids. He will be off work for approximately six weeks. DICTATING PHYSICIAN: ACE VASQUEZ M.D. [id number] PHY#: [id number] ID: [id number] JOB#: [id number] ACCT: [id number] cc:Rosemary HENRY, ACE VASQUEZ M.D. >
== END 2018-06-29 09:10 | disposition home or self-care (01) | DRG 329 ==
LOC: ER 16:48 → EH 20:47 → 4S 06-20 02:00
PROVIDERS: ATTEND Surgery
PROC: 0WUF07Z Supplement Abdominal Wall with Autologous Tissue Substitute, Open Approach (ICD-10-PCS; 2018-06-24)
PROC: 0FB10ZZ Excision of Right Lobe Liver, Open Approach (ICD-10-PCS; 2018-06-24)
PROC: 0DJD8ZZ Inspection of Lower Intestinal Tract, Via Natural or Artificial Opening Endoscopic (ICD-10-PCS; 2018-06-24)
PROC: 0DTF0ZZ Resection of Right Large Intestine, Open Approach (ICD-10-PCS; principal; 2018-06-24 12:00)
PROC: 0DTJ0ZZ Resection of Appendix, Open Approach (ICD-10-PCS; 2018-06-24 12:00)
DX: C18.1 Malignant neoplasm of appendix (principal); K35.33 Acute appendicitis with perforation, localized peritonitis, and gangrene, with abscess; C78.7 Secondary malignant neoplasm of liver and intrahepatic bile duct; Z68.41 Body mass index [BMI] 40.0-44.9, adult; E66.01 Morbid (severe) obesity due to excess calories; F17.210 Nicotine dependence, cigarettes, uncomplicated; B96.20 Unspecified Escherichia coli [E. coli] as the cause of diseases classified elsewhere; H91.90 Unspecified hearing loss, unspecified ear; Z53.31 Laparoscopic surgical procedure converted to open procedure; Z88.0 Allergy status to penicillin; Z80.0 Family history of malignant neoplasm of digestive organs
CPT/HCPCS: 36415; 45380; 74018; 74177; 790; 80048; 80053; 83690; 840; 85025; 87070; 87075; 87077; 87186; 87205; 88304; 88305; 88309; 93005; 93010; 94799; 96361; 96374; 99285; J0131; J0330; J0744; J1100; J1170; J1644; J1885; J2250; J2270; J2405; J2550; J2704; J3010; J3490; J7030; J7120; S0028

== ENCOUNTER → 2018-07-25 | Outpatient (CLI) | payer SELFPAY ==
--- NOTE | 2018-07-26 10:49 | RADIOLOGY REPORT (SQ) ---
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 RADIONUCLIDE AND DOSE: 10 mCi F18 FDG The route of agent administration: Intravenous FASTING BLOOD SUGAR: 90 mg/dl CONTRAST TYPE AND DOSE: No CT contrast given. TECHNIQUE: Blood glucose level was verified. Above dose of FDG was injected intravenously. 2-D seg mented attenuation correction images were obtained from the base of the skull to the midthighs. Nonc ontrast CT images were obtained for attenuation correction and fusion with emission images. CT image s were performed without oral or intravenous contrast and are not sensitive for parenchymal lesions. A series of overlapping emission PET images were obtained. Images reviewed and manipulated at [facility] work station by the radiologist. Images stored on PACS. LIMITATIONS: None. FINDINGS: HEAD AND NECK: No areas of abnormal metabolic activity in the soft tissues of the head and neck. CHEST: No areas of abnormal metabolic activity in the chest. ABDOMEN AND PELVIS: Vague low-attenuation lesion in the peripheral right lobe of the liver, difficult to visualize on noncontrast CT. Estimated measurement approximately 1.5 x 2.5 cm. Mean SUV value 8 .4. No other hepatic lesions. No other areas of abnormal metabolic activity in the abdomen or pelvi s. Expected physiologic activity is present in the genitourinary system and bowel. PROXIMAL LOWER EXTREMITIES: No areas of abnormal metabolic activity in the soft tissues of the lower extremities. BONES: No abnormal metabolic activity in the visualized skeleton. ADDITIONAL CT FINDINGS: Surgical changes of recent right hemicolectomy. No additional significant fi ndings on the noncontrast CT images. OTHER: No other significant findings. IMPRESSION: 1. HYPERMETABOLIC LESION IN THE PERIPHERAL RIGHT LOBE OF THE LIVER, DIFFICULT TO VISUALIZE ON NONCONT RAST CT. THIS CORRESPONDS WITH BIOPSY PROVEN METASTATIC LESION. 2. SURGICAL CHANGES RELATED TO RECENT RIGHT HEMICOLECTOMY. NO ABNORMAL ACTIVITY TO SUGGEST RESIDUAL TUMOR. OTHER THAN THE SINGLE HEPATIC LESION, THERE ARE NO OTHER AREAS OF ABNORMAL ACTIVITY TO SUGGES T METASTATIC DISEASE ELSEWHERE. TECHNICAL DOCUMENTATION: JOB ID: [id number] [employer]- All Rights Reserved Reading location - IP/workstation name: [email or web address]
== END ==
LOC: RAD 18:30
PROVIDERS: ATTEND Internal Medicine Hematology & Oncology
DX: C18.1 Malignant neoplasm of appendix (principal); C78.7 Secondary malignant neoplasm of liver and intrahepatic bile duct
CPT/HCPCS: 78815; A9552

== ENCOUNTER 2018-08-05 11:30 | Day surgery (SDC) | payer SELFPAY ==
[~2018-08-05 11:30] MED LIST changes: +ACETAMINOPHEN 325 MG TABLET PO PRN; +BUPIVACAINE HCL 0.25% /EPINEPHRINE INJ/PF 30 ML SDV ONE; +CEFAZOLIN 1 GM/D5W RTU 1 GM/50 ML RTUPB IV PRN; +CLINDAMYCIN 600 MG/D5W RTU 600 MG/50 ML RTUPB IV PRN; -DEXAMETHASONE SOD PHOSPHATE INJ 4 MG/1 ML VIAL ONE; -GLYCOPYRROLATE 1 MG/5 ML SYRINGE ONE; -NEOSTIGMINE METHYLSULFATE 10 MG/10 ML VIAL ONE; -ONDANSETRON HCL INJ/PF 4 MG/2 ML SDV ONE; +RINGERS SOLUTION,LACTATED 1,000 ML IV PRN; -ROCURONIUM BROMIDE INJ 50 MG/5 ML VIAL IV ONE; -SUCCINYLCHOLINE CHLORIDE INJ 200 MG/10 ML VIAL ONE
[2018-08-05 13:14] LABS: HEMATOCRIT 38.8 % (37.9-51.0); HEMOGLOBIN 13.3 g/dL (13.5-17.0); MEAN CORPUSCULAR HEMOGLOBIN 31.7 pg (27.0-33.4); MEAN CORPUSCULAR HGB CONC 34.4 g/dL (32.0-36.0); MEAN CORPUSCULAR VOLUME 92 fl (80-97); PLATELET COUNT 366 10^3/uL (150-450); RED BLOOD COUNT 4.21 10^6/uL (4.35-5.55); RED CELL DISTRIBUTION WIDTH 13.9 % (11.5-14.0); WHITE BLOOD COUNT 8.5 10^3/uL (4.0-10.5)
[2018-08-05] MEDS ORDERED: ONDANSETRON HCL INJ/PF 4 MG/2 ML SDV ONE (13:16)
[2018-08-05] MEDS ORDERED: MIDAZOLAM 2 MG/2 ML INJ ONE (13:16)
[2018-08-05] MEDS ORDERED: FENTANYL CITRATE INJ/PF 100 MCG/2 ML AMPUL ONE (13:16)
[2018-08-05] MEDS ORDERED: PROMETHAZINE HCL INJ 25 MG/1 ML VIAL ONE (13:16)
[2018-08-05] MEDS ORDERED: CLINDAMYCIN 600 MG/D5W RTU 600 MG/50 ML RTUPB IV ONE (13:17)
[2018-08-05] MEDS ORDERED: PROPOFOL INJ 200 MG/20 ML VIAL IV ONE ×2 (13:17→14:34)
[2018-08-05] MEDS ORDERED: MORPHINE SULFATE 10 MG/ML INJ IV PRN (13:36)
[2018-08-05] MEDS ORDERED: MEPERIDINE HCL/PF INJ 25 MG/1 ML DISP.SYRIN IV PRN (13:36)
[2018-08-05] MEDS ORDERED: PROMETHAZINE HCL INJ 25 MG/1 ML VIAL IV PRN ×2 (13:36)
[2018-08-05] MEDS ORDERED: DIPHENHYDRAMINE HCL 50 MG/ML VIAL IV PRN (13:36)
[2018-08-05] MEDS ORDERED: FENTANYL CITRATE INJ/PF 100 MCG/2 ML AMPUL IV PRN ×3 (13:36)
--- NOTE | 2018-08-05 14:26 | Operative Report ---
Nonrecallable Operative Report DATE OF SURGERY: 08/05/18 PREOPERATIVE DIAGNOSIS: colon cancer POSTOPERATIVE DIAGNOSIS: colon cancer OPERATION: portacath placement SURGEON: SHAISTA VASQUEZ ANESTHESIA: LMAC TISSUE REMOVED OR ALTERED: none COMPLICATIONS: none ESTIMATED BLOOD LOSS: 2cc INTRAOPERATIVE FINDINGS: see dictation PROCEDURE: see dictation
[2018-08-05] MEDS ORDERED: ACETAMINOPHEN 1,000 MG/100 ML RTUPB IV ONE (14:28)
[2018-08-05] MEDS ORDERED: OXYCODONE-ACETAMINOPHEN 5-325 MG TABLET PO PRN (14:28)
--- NOTE | 2018-08-05 14:28 | Discharge Summary ---
Discharge Summary (SDC) - Discharge Final Diagnosis: colon cancer Date of Surgery: 08/05/18 Discharge Date: 08/05/18 Condition: Good Treatment or Instructions: keep dressing dry till seen by physician Discharge Diet: As Tolerated Discharge Activity: Activity As Tolerated Report the Following to Your Physician Immediately: Shortness of Breath - appoint with me in [address] Schreiber, Nausea, Vomiting, Increase in Pain, Fever over 101 Degrees
[2018-08-05] MEDS: FENTANYL CITRATE INJ/PF 100 MCG/2 ML AMPUL ONE ×2 (14:37→14:40)
--- NOTE | 2018-08-05 14:59 | OPERATIVE REPORT E ---
Operative Report NAME: HEMANTH BOTELLO : 1975 AGE: 43Y DATE OF SURGERY: 08/05/2018 ROOM: PREOPERATIVE DIAGNOSIS: Colon cancer. POSTOPERATIVE DIAGNOSIS: Colon cancer. OPERATIVE PROCEDURE: Port-A-Cath placement, left chest. SURGEON: SHAISTA VASQUEZ M.D. PROCEDURE: The patient was brought to the operating room in awake, alert, and stable condition, placed on the operating table in supine position, given IV sedation. The left chest and neck were prepped and draped in the usual sterile manner for the procedure. After appropriate time out the left subclavian skin was infiltrated with 1% lidocaine plain. A left subclavian vein access was then obtained with a 16-gauge needle using fluoroscopy. A wire was placed through the needle into the superior vena cava, confirmed on fluoroscopy, using the Seldinger technique. Once the wire was in proper position a dilator and introducer was placed over the wire into the superior vena cava and the wire and dilator were removed. A Port-A-Cath catheter 8 Bur[place]ian was placed into the tear-away introducer, and the tear-away introducer was pulled away after confirming good placement in the superior vena cava by fluoroscopy. Attention was then turned to the left chest wall. Just above and lateral to the nipple a transverse incision was made in the skin after anesthetizing it with 1% lidocaine with epinephrine. A subcutaneous pocket was then fashioned with the Bovie cautery on the inferior flap to admit the port. Once the pocket was fashioned the tunnel maker was used, attaching the catheter to the end of the tunnel maker and starting at the subclavian stick site and tunneling it under the skin to the port site. It was then attached to the port. It was confirmed good placement with fluoroscopy and it was then heparinized with a heparinized saline solution. Once this was completed the subcutaneous tissue over the port was closed with interrupted 3-0 Vicryl sutures and then all skin incisions were closed with intracuticular 4-0 Biosyn. Steri-Strips completed the procedure. Estimated blood loss was less than 2 mL. Sponge and needle counts were correct x2. The patient was transferred to recovery in stable condition, no complications. DICTATING PHYSICIAN: SHAISTA VASQUEZ M.D. [id number] PHY#: [id number] ID: [id number] JOB#: [id number] ACCT: [id number] cc:SHAISTA VASQUEZ M.D. >
--- NOTE | 2018-08-05 15:18 | RADIOLOGY REPORT (SQ) ---
EXAM DESCRIPTION: CHEST SINGLE VIEW COMPLETED DATE/TIME: 08/05/2018 2:51 pm REASON FOR STUDY: portcath placement COMPARISON: None. EXAM PARAMETERS: NUMBER OF VIEWS: One view. TECHNIQUE: Single frontal radiographic view of the chest acquired. RADIATION DOSE: NA LIMITATIONS: None. FINDINGS: LUNGS AND PLEURA: No opacities, masses or pneumothorax. No pleural effusion. MEDIASTINUM AND HILAR STRUCTURES: No masses. Contour normal. HEART AND VASCULAR STRUCTURES: Heart normal in size. Normal vasculature. BONES: No acute findings. HARDWARE: None in the chest. OTHER: Left side port tip overlying SVC. IMPRESSION: Good position of left-sided port. No pneumothorax. TECHNICAL DOCUMENTATION: JOB ID: [id number] [employer]- All Rights Reserved Reading location - IP/workstation name: [email or web address]
--- NOTE | 2018-08-05 16:01 | RADIOLOGY REPORT (SQ) ---
EXAM DESCRIPTION: FLUORO/CV PLACEMENT COMPLETED DATE/TIME: 08/05/2018 3:19 pm REASON FOR STUDY: PORTACATH PLCMT LEFT SIDE ASST WITH FLUORO IN OR C18.1 MALIGNANT NEOPLASM OF APPE NDIX COMPARISON: AP chest 08/05/2018 FLUOROSCOPY TIME: 1.6 minutes 3 digital C-arm images saved to PACS. TECHNIQUE: Fluoroscopy for central line placement in the OR LIMITATIONS: None. PROCEDURE: Intra procedural imaging and fluoro during placement of a left-sided central venous emi ter. Please see the operative report for further detail IMPRESSION: Intra procedural imaging and fluoro COMMENT: Quality ID [id number]: Final reports for procedures using fluoroscopy that document radiation exp osure indices, or exposure time and number of fluorographic images (if radiation exposure indices are not available) TECHNICAL DOCUMENTATION: JOB ID: [id number] [employer]- All Rights Reserved rev-10/02 Reading location - IP/workstation name: [email or web address]
[2018-08-05 16:25] VITALS: BP 117/73
== END 2018-08-05 16:20 | disposition home or self-care (01) ==
LOC: OROUT 11:30
PROVIDERS: ATTEND Surgery
DX: C18.1 Malignant neoplasm of appendix (principal); F17.210 Nicotine dependence, cigarettes, uncomplicated; Z88.0 Allergy status to penicillin
CPT/HCPCS: 36561; 36415; 85027; 71045; 77001; C1788; Q9967; J2250; J3490; J3010; J2550; J2405; J2704; J1642; J0131; 532

== ENCOUNTER 2018-08-11 08:05 | Outpatient (CLI) | payer MEDICAID ==
[~2018-08-11 08:05] MED LIST changes: -ACETAMINOPHEN 325 MG TABLET PO PRN; +BEVACIZUMAB IV PRN; -BUPIVACAINE HCL 0.25% /EPINEPHRINE INJ/PF 30 ML SDV ONE; -CEFAZOLIN 1 GM/D5W RTU 1 GM/50 ML RTUPB IV PRN; -CLINDAMYCIN 600 MG/D5W RTU 600 MG/50 ML RTUPB IV PRN; +CONTAINER EMPTY IV PRN; +DEXTROSE 5% IV PRN; +DEXTROSE 5%-WATER 250 ML IV PRN; +DISPOSABLE IV PRN; +FLUOROURACIL IV PRN; +LEUCOVORIN CALCIUM IV PRN; +NORMAL SALINE 250 ML IV PRN; +NORMAL SALINE IV PRN; +ONDANSETRON HCL/PF 8 MG, DEXAMETHASONE SOD PHOSPHATE 10 MG in NORMAL SALINE 50 ML IV PRN; +OXALIPLATIN IV PRN; -RINGERS SOLUTION,LACTATED 1,000 ML IV PRN; +WATER IV PRN
[2018-08-11 08:41] VITALS: BP 127/72
[2018-08-11] MEDS ORDERED: BEVACIZUMAB IV PRN (09:01)
[2018-08-11] MEDS ORDERED: NORMAL SALINE IV PRN (09:01)
== END 2018-08-11 15:23 | disposition home or self-care (01) ==
LOC: II 08:05 → 5TH 09:39 → II 15:23
PROVIDERS: ATTEND Internal Medicine Hematology & Oncology
PROC: 3E04305 Introduction of Other Antineoplastic into Central Vein, Percutaneous Approach (ICD-10-PCS; principal; 2018-08-11)
PROC: 3E0430M Introduction of Antineoplastic, Monoclonal Antibody, into Central Vein, Percutaneous Approach (ICD-10-PCS; 2018-08-11)
PROC: 3E043GC Introduction of Other Therapeutic Substance into Central Vein, Percutaneous Approach (ICD-10-PCS; 2018-08-11)
DX: Z51.11 Encounter for antineoplastic chemotherapy (principal); C18.1 Malignant neoplasm of appendix; C78.7 Secondary malignant neoplasm of liver and intrahepatic bile duct; Z90.49 Acquired absence of other specified parts of digestive tract
CPT/HCPCS: 96409; 96413; 96415; 96416; 96367; 96417; J3490 ×3; J9190; J2405; J7060; J1100; J9035 ×2; J9263; 96368; 96411

== ENCOUNTER → 2018-09-22 | Outpatient (CLI) | payer MEDICAID ==
--- NOTE | 2018-09-22 16:49 | XCELERA REPORT ---
[address] [address] Upper Extremity Venous Evaluation Name: HEMANTH BOTELLO Age: 43 yrs Gender: Male : 1975 Patient Status: Outpatient Patient Location: Study Date: 09/22/2018 11:59 AM Procedure: Unilateral duplex scan of the left upper extremity veins was performed, including responses to compression and other maneuvers. Reason For Study: LUE PAIN/SWELLING Ordering Physician: EILEEN BRODY Performed By: Kenneth Macias Left Sided Venous Evaluation Abnormal vessel filling wall to wall, no compression ,augmentation or Colour flow. Veins echolucent and enlarged. Including Subclavian,Axillary, Brachial. Interpretation Summary Extensive, acute Deep Venous Thrombosis in the left upper extremity. : EILEEN BRODY > Hans Disla
== END ==
LOC: SP 11:08
PROVIDERS: ATTEND Internal Medicine Hematology & Oncology
DX: M79.609 Pain in unspecified limb (principal); M79.89 Other specified soft tissue disorders
CPT/HCPCS: 93971

== ENCOUNTER 2018-11-04 21:19 | Emergency (ER) | payer MEDICAID ==
--- NOTE | 2018-11-04 23:36 | ER Document Report ---
HPI - HPI Patient complains to provider of: pulled out pump from chemo Time Seen by Provider: 11/04/18 23:30 Pain Level: Denies Context: Patient presents to the emergency department after consulting with Dr. Jain, his oncologist, for a vascular access problem. He said he was at work and in chain, his chemo pump that was hanging just below his belt line and pulled the line out from his Chemo-Port. He called Dr. Jain and she told him to come to the emergency department, have the emergency department flush his port with heparin, and reattach it. Patient reports no other complications. Past Medical History - Social History Smoking Status: Unknown if Ever Smoked Family History: Reviewed & Not Pertinent - Past Medical History Cardiac Medical History: Denies: Hx Coronary Artery Disease, Hx Heart Attack, Hx Hypertension Pulmonary Medical History: Denies: Hx Asthma, Hx Bronchitis, Hx COPD, Hx Pneumonia Neurological Medical History: Denies: Hx Cerebrovascular Accident, Hx Seizures Renal/ Medical History: Denies: Hx Peritoneal Dialysis Musculoskeletal Medical History: Denies Hx Arthritis Psychiatric Medical History: Denies: Hx Depression Past Surgical History: Reports: Hx Adenoidectomy, Hx Myringotomy, Hx Tonsillectomy, Other - Lasix as surgery - Immunizations Immunizations up to date: No Hx Diphtheria, Pertussis, Tetanus Vaccination: No Vertical Provider Document - CONSTITUTIONAL Notes: PHYSICAL EXAMINATION: Reviewed vital signs and charting by RN GENERAL: Alert, interacts well. No acute distress. HEAD: Normocephalic, atraumatic. EYES: Pupils equal and round. Extraocular movements intact. ENT: Oral mucosa moist, tongue midline. NECK: Full range of motion. Trachea midline. EXTREMITIES: Moves all 4 extremities spontaneously. No edema, No cyanosis. PSYCH: Normal affect, normal mood. SKIN: Warm, dry, normal turgor. No rashes or lesions noted. No evidence of infection around the port site - INFECTION CONTROL TRAVEL OUTSIDE OF THE [place] IN LAST 30 DAYS: No Course - Re-evaluation Re-evalutation: 11/04/18 23:36 Well-appearing. Plan is to flush this part with heparin 500 units and reattach the line to the pump. Patient is stable for discharge. - Vital Signs Vital signs: Temp Pulse Resp BP Pulse Ox 98.2 F 80 22 H 124/71 96 11/04/18 22:23 11/04/18 22:23 11/04/18 22:23 11/04/18 22:23 11/04/18 22:23 Discharge - Discharge Clinical Impression: Encounter for care related to vascular access port Condition: Good Disposition: HOME, SELF-CARE Additional Instructions: You are seen in the emergency department this evening for reobtaining access to your Chemo-Port. We have flushed it with heparin and reconnected the line. Please follow-up with Dr. Jain in the morning. If you have any other problems, concerns, or complications please return to the emergency department. Referrals: EILEEN BRODY MD [Primary Care Provider] - Follow up as needed
[2018-11-05 00:04] VITALS: BP 140/79
== END 2018-11-05 00:06 | disposition home or self-care (01) ==
LOC: ER 21:19
DX: Z45.2 Encounter for adjustment and management of vascular access device (principal)
CPT/HCPCS: 99283

== ENCOUNTER → 2018-11-25 | Outpatient (CLI) | payer MEDICAID ==
--- NOTE | 2018-11-25 11:03 | RADIOLOGY REPORT (SQ) ---
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 The patient is less than 50 years old. COMPARISON: None. TECHNIQUE: CT scan of the chest performed using helical scanning technique with dynamic intravenous contrast injection. Images reviewed with lung, soft tissue and bone windows. Reconstructed coronal a nd sagittal MPR images reviewed. All images stored on PACS. All CT scanners at this facility use dose modulation, iterative reconstruction, and/or weight based d osing when appropriate to reduce radiation dose to as low as reasonably achievable (ALARA). [facility]: Dose Right [facility]: CareDose [facility]: Dose Right [facility]: Teradose 4D [facility]: Smart [employer] RADIATION DOSE: CT Rad equipment meets quality standard of care and radiation dose reduction techniq ues were employed. CTDIvol: 17.3 - 17.8 mGy. DLP: 3821 mGy-cm. . LIMITATIONS: None. FINDINGS: AXILLAE: No adenopathy. CHEST WALL: No masses. No subcutaneous air. LUNGS: No nodules or masses. No pneumothorax. No infiltrates. PLEURA: No effusions. No calcifications. THYROID: No masses or significant asymmetry. HILAR AND MEDIASTINAL STRUCTURES: There is a 1.9 cm precarinal node. This is nonspecific. Most like ly reactive. This is not significantly changed from prior PET CT. AORTA AND GREAT VESSELS: No aneurysm. No dissection. PULMONARY ARTERIES: No identified pulmonary emboli. Study not optimized for the pulmonary arteries. HEART: No pericardial effusion. HARDWARE AND LIFELINES: [id number] is in place. BONES: No significant finding. OTHER: No other significant finding. IMPRESSION: Single small stable precarinal lymph node. Largest diameter is 1.9 cm. This is unchang ed from prior PET-CT done in July. This showed no abnormal metabolic activity at that time. This i s most likely reactive. No evidence of metastatic disease in the chest. COMPARISON: PET-CT dated 07/25/2018 CT abdomen dated 06/19/2018 RADIATION DOSE: CT Rad equipment meets quality standard of care and radiation dose reduction techniq ues were employed. CTDIvol: 17.3 - 17.8 mGy. DLP: 3821 mGy-cm. mGy. TECHNIQUE: CT scan of the abdomen and pelvis performed with intravenous and oral contrast using zayra tanika scanning technique with dynamic intravenous contrast injection. Images reviewed with lung, soft tissue and bone windows. Reconstructed coronal and sagittal MPR images reviewed. Delayed images for evaluation of the urinary system also acquired and evaluated. All images stored on PACS. All CT scanners at this facility use dose modulation, iterative reconstruction, and/or weight based d osing when appropriate to reduce radiation dose to as low as reasonably achievable (ALARA). [facility]: Dose Right [facility]: SureCare [facility]: Dose Right [facility]: Teradose 4D [facility]: [employer] FINDINGS: LIVER: Normal size. No masses. No dilated ducts. No definitive lesion is identified at t he area of increased metabolic activity on prior PET-CT. SPLEEN: Normal size. No focal lesions. PANCREAS: No masses. No significant calcifications. No adjacent inflammation or peripancreatic flui d collections. Pancreatic duct not dilated. GALLBLADDER: No identified stones by CT criteria. No inflammatory changes to suggest cholecystitis. ADRENAL GLANDS: No significant masses or asymmetry. RIGHT KIDNEY AND URETER: No solid masses. No significant calcifications. No hydronephrosis or hyd roureter. LEFT KIDNEY AND URETER: No solid masses. No significant calcifications. No hydronephrosis or hydr oureter. AORTA AND VESSELS: No aneurysm. No dissection. Renal arteries, SMA, celiac without stenosis. RETROPERITONEUM: No retroperitoneal adenopathy, hemorrhage or masses. LARGE AND SMALL BOWEL: No dilatation. No masses. No wall thickening. APPENDIX: Surgically absent. ABDOMINAL WALL: No hernia or masses. PERITONEAL CAVITY: No free air. No free fluid. No peritoneal implants or masses. PELVIS: Mildly prominent inguinal lymph nodes bilaterally not significantly changed from prior PET-CT . These were not metabolically active. BONES: No significant or acute findings. OTHER: No other significant finding. IMPRESSION: No evidence of metastatic disease in the abdomen or pelvis. No focal lesion is identifi ed in the liver. TECHNICAL DOCUMENTATION: JOB ID: [id number] Quality ID # 436: Final reports with documentation of one or more dose reduction techniques (e.g., Au tomated exposure control, adjustment of the mA and/or kV according to patient size, use of iterative reconstruction technique) 2010 [employer]- All Rights Reserved Reading location - IP/workstation name: [email or web address]
--- NOTE | 2018-11-25 11:03 | RADIOLOGY REPORT (SQ) ---
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 The patient is less than 50 years old. COMPARISON: None. TECHNIQUE: CT scan of the chest performed using helical scanning technique with dynamic intravenous contrast injection. Images reviewed with lung, soft tissue and bone windows. Reconstructed coronal a nd sagittal MPR images reviewed. All images stored on PACS. All CT scanners at this facility use dose modulation, iterative reconstruction, and/or weight based d osing when appropriate to reduce radiation dose to as low as reasonably achievable (ALARA). [facility]: Dose Right [facility]: CareDose [facility]: Dose Right [facility]: Teradose 4D [facility]: [employer] RADIATION DOSE: CT Rad equipment meets quality standard of care and radiation dose reduction techniq ues were employed. CTDIvol: 17.3 - 17.8 mGy. DLP: 3821 mGy-cm. . LIMITATIONS: None. FINDINGS: AXILLAE: No adenopathy. CHEST WALL: No masses. No subcutaneous air. LUNGS: No nodules or masses. No pneumothorax. No infiltrates. PLEURA: No effusions. No calcifications. THYROID: No masses or significant asymmetry. HILAR AND MEDIASTINAL STRUCTURES: There is a 1.9 cm precarinal node. This is nonspecific. Most like ly reactive. This is not significantly changed from prior PET CT. AORTA AND GREAT VESSELS: No aneurysm. No dissection. PULMONARY ARTERIES: No identified pulmonary emboli. Study not optimized for the pulmonary arteries. HEART: No pericardial effusion. HARDWARE AND LIFELINES: Kcamlb-M-Iidx is in place. BONES: No significant finding. OTHER: No other significant finding. IMPRESSION: Single small stable precarinal lymph node. Largest diameter is 1.9 cm. This is unchang ed from prior PET-CT done in July. This showed no abnormal metabolic activity at that time. This i s most likely reactive. No evidence of metastatic disease in the chest. COMPARISON: PET-CT dated 07/25/2018 CT abdomen dated 06/19/2018 RADIATION DOSE: CT Rad equipment meets quality standard of care and radiation dose reduction techniq ues were employed. CTDIvol: 17.3 - 17.8 mGy. DLP: 3821 mGy-cm. mGy. TECHNIQUE: CT scan of the abdomen and pelvis performed with intravenous and oral contrast using zayra tanika scanning technique with dynamic intravenous contrast injection. Images reviewed with lung, soft tissue and bone windows. Reconstructed coronal and sagittal MPR images reviewed. Delayed images for evaluation of the urinary system also acquired and evaluated. All images stored on PACS. All CT scanners at this facility use dose modulation, iterative reconstruction, and/or weight based d osing when appropriate to reduce radiation dose to as low as reasonably achievable (ALARA). [facility]: Dose Right [facility]: SureCare [facility]: Dose Right [facility]: Teradose 4D [facility]: [employer] FINDINGS: LIVER: Normal size. No masses. No dilated ducts. No definitive lesion is identified at t he area of increased metabolic activity on prior PET-CT. SPLEEN: Normal size. No focal lesions. PANCREAS: No masses. No significant calcifications. No adjacent inflammation or peripancreatic flui d collections. Pancreatic duct not dilated. GALLBLADDER: No identified stones by CT criteria. No inflammatory changes to suggest cholecystitis. ADRENAL GLANDS: No significant masses or asymmetry. RIGHT KIDNEY AND URETER: No solid masses. No significant calcifications. No hydronephrosis or hyd roureter. LEFT KIDNEY AND URETER: No solid masses. No significant calcifications. No hydronephrosis or hydr oureter. AORTA AND VESSELS: No aneurysm. No dissection. Renal arteries, SMA, celiac without stenosis. RETROPERITONEUM: No retroperitoneal adenopathy, hemorrhage or masses. LARGE AND SMALL BOWEL: No dilatation. No masses. No wall thickening. APPENDIX: Surgically absent. ABDOMINAL WALL: No hernia or masses. PERITONEAL CAVITY: No free air. No free fluid. No peritoneal implants or masses. PELVIS: Mildly prominent inguinal lymph nodes bilaterally not significantly changed from prior PET-CT . These were not metabolically active. BONES: No significant or acute findings. OTHER: No other significant finding. IMPRESSION: No evidence of metastatic disease in the abdomen or pelvis. No focal lesion is identifi ed in the liver. TECHNICAL DOCUMENTATION: JOB ID: [id number] Quality ID # [id number]: Final reports with documentation of one or more dose reduction techniques (e.g., Au tomated exposure control, adjustment of the mA and/or kV according to patient size, use of iterative reconstruction technique) 2010 [employer]- All Rights Reserved Reading location - IP/workstation name: [email or web address]
== END ==
LOC: RAD 09:19
PROVIDERS: ATTEND Internal Medicine Hematology & Oncology
DX: C18.1 Malignant neoplasm of appendix (principal)
CPT/HCPCS: 71260; 74177

== ENCOUNTER → 2019-03-18 | Outpatient (CLI) | payer SELFPAY ==
--- NOTE | 2019-03-18 10:33 | RADIOLOGY REPORT (SQ) ---
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 Images reviewed with lung, soft tissue and bone windows. Reconstructed coronal and sagittal MPR and MIP images reviewed. All images stored on PACS. All CT scanners at this facility use dose modulation, iterative reconstruction, and/or weight based d osing when appropriate to reduce radiation dose to as low as reasonably achievable (ALARA). [facility]: Dose Right [facility]: CareDose [facility]: Dose Right [facility]: Teradose 4D [facility]: [employer] CONTRAST TYPE AND DOSE: See separate report of same date. RENAL FUNCTION: See separate report. RADIATION DOSE: . LIMITATIONS: None. FINDINGS: LUNGS AND PLEURA: No opacities, nodules, masses. No pneumothorax. No effusions. HILAR AND MEDIASTINAL STRUCTURES: Stable pretracheal node measuring about 1 cm short axis. This was not hypermetabolic. HEART AND VASCULAR STRUCTURES: No aneurysm or dissection. No central pulmonary emboli. No pericardi al effusion. HARDWARE: None in the chest. UPPER ABDOMEN: See separate report of the CT of the abdomen. THYROID AND OTHER SOFT TISSUES: No masses. No adenopathy. BONES: No significant finding. OTHER: Left-sided port. IMPRESSION: No evidence of metastatic disease. TECHNICAL DOCUMENTATION: JOB ID: [id number] Quality ID # 436: Final reports with documentation of one or more dose reduction techniques (e.g., Au tomated exposure control, adjustment of the mA and/or kV according to patient size, use of iterative reconstruction technique) 2010 [employer]- All Rights Reserved Reading location - IP/workstation name: [email or web address]
--- NOTE | 2019-03-18 10:37 | RADIOLOGY REPORT (SQ) ---
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 Patient was given oral contrast. Images reviewed with lung, soft ti ssue, and bone windows. Reconstructed coronal and sagittal MPR images reviewed. Delayed images for ev aluation of the urinary system also acquired. All images stored on PACS. All CT scanners at this facility use dose modulation, iterative reconstruction, and/or weight based d osing when appropriate to reduce radiation dose to as low as reasonably achievable (ALARA). [facility]: Dose Right [facility]: CareDose [facility]: Dose Right [facility]: Teradose 4D [facility]: [employer] CONTRAST TYPE AND DOSE: contrast/concentration: Isovue 350.00 mg/ml; Total Contrast Delivered: 100.0 ml; Total Saline Delivered: 72.0 ml RENAL FUNCTION: Creatinine 0.9 RADIATION DOSE: CT Rad equipment meets quality standard of care and radiation dose reduction techniq ues were employed. CTDIvol: 18.6 - 20.6 mGy. DLP: 3288 mGy-cm.. LIMITATIONS: None. FINDINGS: LOWER CHEST: See separate report of the CT of the chest. LIVER: Normal size. No masses. No dilated ducts. SPLEEN: Splenomegaly. No focal lesions. PANCREAS: No masses. No significant calcifications. No adjacent inflammation or peripancreatic fluid collections. Pancreatic duct not dilated. GALLBLADDER: No identified stones by CT criteria. No inflammatory changes to suggest cholecystitis. ADRENAL GLANDS: No significant masses or asymmetry. RIGHT KIDNEY AND URETER: No solid masses. No significant calcifications. No hydronephrosis or hyd roureter. LEFT KIDNEY AND URETER: No solid masses. No significant calcifications. No hydronephrosis or hydr oureter. AORTA AND VESSELS: No aneurysm. No dissection. Renal arteries, SMA, celiac without stenosis. RETROPERITONEUM: Stable shotty retroperitoneal nodes without discrete adenopathy. BOWEL AND PERITONEAL CAVITY: No focal bowel wall thickening. No evidence of intestinal obstruction. Prior right hemicolectomy. APPENDIX: Surgically absent. PELVIS: Decompressed urinary bladder. No mass or adenopathy. No free fluid. ABDOMINAL WALL: No mass. Tiny umbilical fat containing hernia. Diastases recti. BONES: No acute bony abnormality. No suspicious lytic or blastic osseous lesions. OTHER: No other significant finding. IMPRESSION: 1. Stable exam without evidence of intra-abdominal/pelvic metastatic disease. 2. Splenomegaly, stable. TECHNICAL DOCUMENTATION: JOB ID: [id number] Quality ID # [id number]: Final reports with documentation of one or more dose reduction techniques (e.g., Au tomated exposure control, adjustment of the mA and/or kV according to patient size, use of iterative reconstruction technique) 2010 [employer]- All Rights Reserved Reading location - IP/workstation name: [email or web address]
== END ==
LOC: RAD 08:17
PROVIDERS: ATTEND Internal Medicine Hematology & Oncology
DX: C18.1 Malignant neoplasm of appendix (principal); R16.1 Splenomegaly, not elsewhere classified
CPT/HCPCS: 71260; 74177

== ENCOUNTER → 2019-03-21 | Outpatient (CLI) | payer SELFPAY ==
[2019-03-21 13:12] LABS: ALBUMIN 4.2 g/dL (3.5-5.0); ALKALINE PHOSPHATASE 81 U/L (38-126); ANION GAP 8 (5-19); ASPARTATE AMINO TRANSFERASE 33 U/L (17-59); BILIRUBIN,DIRECT 0.3 mg/dL (0.0-0.4); BILIRUBIN,TOTAL 0.5 mg/dL (0.2-1.3); BLOOD UREA NITROGEN 13 mg/dL (7-20); CALCIUM 9.2 mg/dL (8.4-10.2); CARBON DIOXIDE 24 mmol/L (22-30); CHLORIDE 110 mmol/L (98-107); GLUCOSE 150 mg/dL (75-110); POTASSIUM 4.4 mmol/L (3.6-5.0); TOTAL PROTEIN 7.2 g/dL (6.3-8.2)
--- NOTE | 2019-03-21 13:56 | RADIOLOGY REPORT (SQ) ---
EXAM DESCRIPTION: ACUTE ABDOMEN SERIES COMPLETED DATE/TIME: 03/21/2019 12:48 pm REASON FOR STUDY: (R10.9)UNSPECIFIED ABDOMINAL PAIN;(R14.0)ABDOMINAL DISTENSION (GASEOUS) R10.9 UNS PECIFIED ABDOMINAL PAIN R14.0 ABDOMINAL DISTENSION (GASEOUS) COMPARISON: None. NUMBER OF VIEWS: Three views. TECHNIQUE: Frontal chest, supine abdomen and upright/decubitus abdomen radiographic images acquired. LIMITATIONS: None. FINDINGS: CHEST: Lungs clear of infiltrates. FREE AIR: None. No abnormal gas collections. BOWEL GAS PATTERN: Nonobstructive pattern. No dilated loops or air fluid levels. CALCIFICATIONS: No suspicious calcifications. HARDWARE: None in the abdomen. SOFT TISSUES: No gross mass or suggestion of organomegaly. BONES: No acute fracture. No worrisome bone lesions. OTHER: No other significant finding. IMPRESSION: NO RADIOGRAPHIC EVIDENCE FOR ACUTE ABDOMINAL DISEASE. TECHNICAL DOCUMENTATION: JOB ID: [id number] [employer]- All Rights Reserved Reading location - IP/workstation name: [email or web address]
== END ==
LOC: RAD 12:01
PROVIDERS: ATTEND Nurse Practitioner Family
DX: C18.1 Malignant neoplasm of appendix (principal); R10.9 Unspecified abdominal pain; R14.0 Abdominal distension (gaseous)
CPT/HCPCS: 36415; 74022; 80053

== ENCOUNTER 2019-08-18 07:05 | Emergency (ER) | payer SELFPAY ==
--- NOTE | 2019-08-18 08:03 | ER Document Report ---
ED General - General Chief Complaint: Chest Pain Stated Complaint: CHEST PAIN Time Seen by Provider: 08/18/19 07:36 Primary Care Provider: EILEEN BRODY MD [Primary Care Provider] - Follow up as needed Mode of Arrival: Ambulatory Information source: Patient TRAVEL OUTSIDE OF THE [place] IN LAST 30 DAYS: No - HPI Onset: Last week Onset/Duration: Intermittent, Worse Quality of pain: Achy Severity: Moderate Pain Level: 2 Context: Patient is a 44-year-old male presenting to the emergency department chief complaint of chest pain. The patient states it is been off and on for greater than a week however last evening the pain was more intense and he had left-sided shoulder pain. Patient denies shortness of breath cough no recent travel history no trauma history. Patient denies nausea vomiting or diarrhea. 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 Patient also of note is a colorectal cancer survivor. Associated symptoms: None Exacerbated by: Movement Relieved by: Denies Similar symptoms previously: Yes Recently seen / treated by doctor: No - Related Data Allergies/Adverse Reactions: Penicillins Allergy (Verified 11/06/17 13:15) Home Medications: Xarelto. Tylenol. Ibuprofen. Prilosec Past Medical History - General Information source: Patient - Social History Smoking Status: Current Every Day Smoker Cigarette use (# per day): Yes Chew tobacco use (# tins/day): No Smoking Education Provided: Yes Frequency of alcohol use: Occasional Drug Abuse: None Lives with: Spouse/Significant other Family History: Reviewed & Not Pertinent Patient has suicidal ideation: No Patient has homicidal ideation: No - Past Medical History Cardiac Medical History: Denies: Hx Coronary Artery Disease, Hx Heart Attack, Hx Hypertension Pulmonary Medical History: Denies: Hx Asthma, Hx Bronchitis, Hx COPD, Hx Pneumonia Neurological Medical History: Denies: Hx Cerebrovascular Accident, Hx Seizures Renal/ Medical History: Denies: Hx Peritoneal Dialysis Malignancy Medical History: Reports Hx Colorectal Cancer Musculoskeletal Medical History: Denies Hx Arthritis Psychiatric Medical History: Denies: Hx Depression Past Surgical History: Reports: Hx Adenoidectomy, Hx Myringotomy, Hx Tonsillectomy, Other - Lasix as surgery - Immunizations Immunizations up to date: No Hx Diphtheria, Pertussis, Tetanus Vaccination: No Review of Systems - Review of Systems Constitutional: No symptoms reported EENT: No symptoms reported Cardiovascular: Chest pain Respiratory: No symptoms reported Gastrointestinal: No symptoms reported Genitourinary: No symptoms reported Male Genitourinary: No symptoms reported Musculoskeletal: See HPI Skin: No symptoms reported Hematologic/Lymphatic: No symptoms reported Neurological/Psychological: No symptoms reported -: Yes All other systems reviewed and negative Physical Exam - Vital signs Vitals: Temp Pulse Resp BP Pulse Ox 97.8 F 80 18 172/96 H 98 08/18/19 07:25 08/18/19 07:25 08/18/19 07:25 08/18/19 07:25 08/18/19 07:25 - Notes Notes: PHYSICAL EXAMINATION: GENERAL: Well-appearing, well-nourished and in no acute distress. HEAD: Atraumatic, normocephalic. EYES: Pupils equal round and reactive to light, extraocular movements intact, sclera anicteric, conjunctiva are normal. ENT: nares patent, oropharynx clear without exudates. Moist mucous membranes. NECK: Normal range of motion, supple without lymphadenopathy, no appreciable JVD LUNGS: Lungs clear to auscultation bilaterally and equal. No wheezes rales or rhonchi. HEART: Regular rate and rhythm without murmurs ABDOMEN: Soft, nontender, normal bowel sounds. No guarding, no rebound. No masses appreciated. EXTREMITIES: Active full range of motion, no pitting or edema. No cyanosis. 2+ pulses x4 however patient does have pain to the left shoulder at the area of the origin of the left biceps worse with range of motion with resistance. NEUROLOGICAL: No focal neurological deficits. Moves all extremities spontaneously and on command. SKIN: Warm, Dry, and intact. Normal turgor, no rashes or lesions noted. Course - Re-evaluation Re-evalutation: 08/18/19 08:02 Portable chest x-ray EKG laboratory studies all have been ordered. 08/18/19 10:13 At this time I was able to review the patient's laboratory EKG and radiologic results no significant findings at this point in time. Repeat troponin will be accomplished at 1130 and further discussion as to management and disposition will be a at that time. Patient remained stable without complaint. 08/18/19 10:54 Patient is remained stable while in emergency department. The patient is been on a monitor technician the entire time. Patient's initial laboratory studies along with EKG and radiology studies are negative. Patient was seen by dinorah mattaogy, Dr. Jimenez, states that he has evaluated the patient and if the patient's second troponin is negative he would be willing to do a treadmill stress test today. Currently waiting on repeat troponin. 08/18/19 11:28 Repeat troponin found to be 0.122. Cardiology has been paged. 08/18/19 11:45 Cardiac echo is being performed at this time. I did call [facility] and have requested transfer of the patient for an STEMI currently waiting for callback. 08/18/19 12:28 I was able [facility] with [facility] the patient to their facility for further cardiac evaluation. Patient has received aspirin and nitro per protocol. Accepting physician is Dr. Pito Hayes. Currently waiting on transportation. Patient is aware and agreeable with care plan. 08/18/19 12:51 Echocardiogram was obtained and evaluated by Dr. Jimenez cardiology manager marketing communication and has found no significant abnormal findings at this time. Patient still waiting on transport. 08/18/19 13:33 Was informed by nursing staff EMS should be here in the next 40 minutes for transporting the patient to [facility]. - Vital Signs Vital signs: Temp Pulse Resp BP Pulse Ox 97.8 F 67 21 H 135/87 H 98 08/18/19 13:00 08/18/19 09:32 08/18/19 13:01 08/18/19 13:00 08/18/19 13:01 - Laboratory Result Diagrams: 08/18/19 08:30 08/18/19 08:30 Laboratory results interpreted by me: 08/18/19 08/18/19 08:30 08:30 WBC 10.8 H Glucose 114 H - Diagnostic Test Radiology reviewed: Reports reviewed - EKG Interpretation by Me EKG shows normal: Sinus rhythm Rate: Normal Rhythm: NSR When compared to previous EKG there are: No significant change Additional EKG results interpreted by me: 08/18/19 08:02 EKG is interpreted by me shows sinus rhythm rate of 76 bpm there is no ST elevation no axis deviation no ectopy no major change compared to prior EKG of June 24, 2018. Critical Care Note - Critical Care Note Total time excluding time spent on procedures (mins): 40 Comments: Please allow 40 minutes of critical care time exclusive of separately billable procedures for multiple re-evaluations medical management of this patient as well as consultation with cardiology and transfer accepting physician in regards to care for this critically ill patient. Discharge - Discharge Clinical Impression: NSTEMI (non-ST elevated myocardial infarction), Elevated troponin I level Chest pain Qualifiers: Chest pain type: unspecified Qualified Code(s): R07.9 - Chest pain, unspecified Condition: Stable Disposition: [facility] Referrals: EILEEN BRODY MD [Primary Care Provider] - Follow up as needed
--- NOTE | 2019-08-18 08:41 | RADIOLOGY REPORT (SQ) ---
EXAM DESCRIPTION: CHEST SINGLE VIEW IMAGES COMPLETED DATE/TIME: 08/18/2019 8:17 am REASON FOR STUDY: chest pain COMPARISON: Chest films 08/05/2018 PET-CT 07/25/2018 CT chest 03/18/2019 EXAM PARAMETERS: NUMBER OF VIEWS: One view. TECHNIQUE: Single frontal radiographic view of the chest acquired. RADIATION DOSE: NA LIMITATIONS: None. FINDINGS: LUNGS AND PLEURA: No opacities, masses or pneumothorax. No pleural effusion. MEDIASTINUM AND HILAR STRUCTURES: No masses. Contour normal. HEART AND VASCULAR STRUCTURES: Heart normal in size. Normal vasculature. BONES: No acute findings. HARDWARE: Left-sided permanent central line tip superior vena cava OTHER: No other significant finding. IMPRESSION: NO ACUTE RADIOGRAPHIC FINDING IN THE CHEST. TECHNICAL DOCUMENTATION: JOB ID: [id number] [employer]- All Rights Reserved Reading location - IP/workstation name: [id number]
[2019-08-18 08:42] LABS: ABSOLUTE BASOPHILS # (AUTO) 0.1 10^3/uL (0.0-0.2); ABSOLUTE EOSINOPHILS # (AUTO) 0.1 10^3/uL (0.0-0.6); ABSOLUTE LYMPHOCYTES (AUTO) 2.4 10^3/uL (0.5-4.7); ABSOLUTE MONOCYTES (AUTO) 0.8 10^3/uL (0.1-1.4); ABSOLUTE NEUT (AUTO) 7.4 10^3/uL (1.7-8.2); BASOPHILS % (AUTO) 0.9 % (0-2); HEMATOCRIT 46.4 % (37.9-51.0); HEMOGLOBIN 16.3 g/dL (13.5-17.0); LYMPHOCYTES % (AUTO) 22.1 % (13-45); MEAN CORPUSCULAR HGB CONC 35.1 g/dL (32.0-36.0); MEAN CORPUSCULAR VOLUME 94 fl (80-97); MONOCYTES % (AUTO) 7.7 % (3-13); PLATELET COUNT 281 10^3/uL (150-450); RED BLOOD COUNT 4.93 10^6/uL (4.35-5.55); SEGMENTED NEUTROPHILS % (AUTO) 68.3 % (42-78); TOTAL CELLS COUNTED % (AUTO) 100 %; WHITE BLOOD COUNT 10.8 10^3/uL (4.0-10.5)
--- NOTE | 2019-08-18 08:43 | RADIOLOGY REPORT (SQ) ---
EXAM DESCRIPTION: SHOULDER LEFT 2 OR MORE VIEWS IMAGES COMPLETED DATE/TIME: 08/18/2019 8:17 am REASON FOR STUDY: pain COMPARISON: Left shoulder films 11/06/2017 CT chest 03/18/2019 NUMBER OF VIEWS: Three views. TECHNIQUE: Internal rotation, external rotation, and Y view images acquired of the left shoulder. LIMITATIONS: None. FINDINGS: MINERALIZATION: Normal. BONES: No acute fracture. No worrisome bone lesions. JOINTS: No glenohumeral dislocation. No AC joint widening VISUALIZED LUNGS AND RIBS: No pneumothorax. No rib fracture. SOFT TISSUES: No radiopaque foreign body. OTHER: No other significant finding. IMPRESSION: NEGATIVE STUDY OF THE LEFT SHOULDER. NO RADIOGRAPHIC EVIDENCE OF ACUTE INJURY. TECHNICAL DOCUMENTATION: JOB ID: [id number] 2010 [employer]- All Rights Reserved Reading location - IP/workstation name: [id number]
[2019-08-18 09:03] LABS: ALBUMIN 4.3 g/dL (3.5-5.0); ALKALINE PHOSPHATASE 83 U/L (38-126); ANION GAP 6 (5-19); ASPARTATE AMINO TRANSFERASE 34 U/L (17-59); BILIRUBIN,TOTAL 0.4 mg/dL (0.2-1.3); BLOOD UREA NITROGEN 9 mg/dL (7-20); CALCIUM 9.6 mg/dL (8.4-10.2); CARBON DIOXIDE 27 mmol/L (22-30); CHLORIDE 106 mmol/L (98-107); CREATINE KINASE 114 U/L (55-170); GLUCOSE 114 mg/dL (75-110); POTASSIUM 4.6 mmol/L (3.6-5.0); TOTAL PROTEIN 7.6 g/dL (6.3-8.2)
[2019-08-18 09:17] LABS: CREATINE KINASE MB 2.35 ng/mL (<4.55)
[2019-08-18 09:25] LABS: TROPONIN I 0.043 ng/mL
--- NOTE | 2019-08-18 09:27 | EKG REPORT ---
SEVERITY:- NORMAL ECG - SINUS RHYTHM : Confirmed by: John Vargas 18-Aug-2019 09:26:37
--- NOTE | 2019-08-18 11:06 | PDOC CONSULTATION ---
Consultation Consult Date: 08/18/19 Attending physician:: PEDRO CAMAREAN Provider Consulted: TERESSA BARRAGAN Consult reason:: Chest pain History of Present Illness Admission Date/PCP: EILEEN BRODY MD Patient complains of: Currently asymptomatic. History of Present Illness: HEMANTH BOTELLO is a 44 year old male with no known history of coronary artery disease, stage IV colon cancer on Xarelto 10 mg daily due to his port, left arm clot, with history of smoking 2 packs/day since age 16 years and no family history of premature coronary artery disease in first-degree family members who is consulted for further evaluation of chest pain. 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 His initial chest pain that occurred while he was changing heavy equipment at which time he had a substernal burning sensation, lasting for several minutes, resolved with rest and without any associated symptoms. The following day he experienced the same chest pain but this time lasted a little bit longer and radiated to the left arm. He decided to come into the emergency room today as the patient was present pretty much all night long last night but he was dull in nature and made worse with laying down. He states he was not able to sleep very well. He denied associated diaphoresis, palpitations, syncope and presyncope. Physical exam on 08/18/2019: GENERAL: Pleasant and conversational. Oriented x3 with normal mood. Not in acute distress. Well groomed and well developed. HEENT: Normocephalic, atraumatic. Pupils equal. Sclerae anicteric. Oropharynx moist. NECK: No JVD. No carotid bruits. LUNGS: Clear to auscultation bilaterally. Normal respiratory effort without the use of accessory muscles or intercostal retractions. CARDIOVASCULAR: Regular rate and rhythm, normal S1 and S2 without murmurs, rubs, or gallops. PMI not displaced. ABDOMEN: No masses or tenderness to palpation. No bruit. No splenomegaly or hepatomegaly. No abdominal aorta bruit noted. EXTREMITIES: No edema, no cyanosis, no clubbing. +2 pulses femoral and pedal pulses bilaterally. SKIN: No lesions or rashes. MUSCULOSKELETAL: No chest tenderness to palpation. NEUROLOGIC: Nonfocal. No gross sensory or motor deficits bilateral upper or lower extremities. Past Medical History Cardiac Medical History: Denies: Coronary Artery Disease, Myocardial Infarction, Hypertension Pulmonary Medical History: Denies: Asthma, Bronchitis, Chronic Obstructive Pulmonary Disease (COPD), Pneumonia Neurological Medical History: Denies: Seizures Malignancy Medical History: Reports: Colorectal Cancer Musculoskeltal Medical History: Denies: Arthritis Psychiatric Medical History: Denies: Depression Hematology: Denies: Anemia Past Surgical History Past Surgical History: Reports: Tonsillectomy, Other - Lasix as surgery Social History Lives with: Spouse/Significant other Smoking Status: Current Every Day Smoker Electronic Cigarette use?: No Frequency of Alcohol Use: Occasional Hx Recreational Drug Use: No Drugs: None Hx Prescription Drug Abuse: No Family History Family History: Reviewed & Not Pertinent Parental Family History Reviewed: Yes Children Family History Reviewed: Yes Sibling(s) Family History Reviewed.: Yes Medication/Allergy Home Medications: No Home Medications 06/20/18 Allergies/Adverse Reactions: Penicillins Allergy (Verified 11/06/17 13:15) Physical Exam Vital Signs: Temp Pulse Resp BP Pulse Ox 97.9 F 67 25 H 160/86 H 100 08/18/19 09:32 08/18/19 09:32 08/18/19 09:32 08/18/19 09:32 08/18/19 09:32 Intake & Output 08/17/19 08/18/19 08/19/19 06:59 06:59 06:59 Weight 133.356 kg Results Laboratory Results: 08/18/19 08:30 08/18/19 08:30 08/18/19 08/18/19 08:30 08:30 WBC 10.8 H RBC 4.93 Hgb 16.3 Hct 46.4 MCV 94 MCH 33.0 MCHC 35.1 RDW 13.0 Plt Count 281 Seg Neutrophils % 68.3 Sodium 138.5 Potassium 4.6 Chloride 106 Carbon Dioxide 27 Anion Gap 6 BUN 9 Creatinine 0.79 Est GFR ( Amer) > 60 Glucose 114 H Calcium 9.6 Total Bilirubin 0.4 AST 34 Alkaline Phosphatase 83 Total Protein 7.6 Albumin 4.3 Lipase 77.4 08/18/19 08/18/19 08:30 08:30 Creatine Kinase 114 CK-MB (CK-2) 2.35 Troponin I 0.043 EKG Comments: EKG was reviewed by me, normal sinus rhythm without ischemic changes. Impressions: Chest X-Ray 08/18/19 07:30 IMPRESSION: NO ACUTE RADIOGRAPHIC FINDING IN THE CHEST. Shoulder X-Ray 08/18/19 07:57 IMPRESSION: NEGATIVE STUDY OF THE LEFT SHOULDER. NO RADIOGRAPHIC EVIDENCE OF ACUTE INJURY. 08/18/19 08:30 08/18/19 08:30 MCV 94 fl (80-97) 08/18/19 08:30 MCH 33.0 pg (27.0-33.4) 08/18/19 08:30 MCHC 35.1 g/dL (32.0-36.0) 08/18/19 08:30 RDW 13.0 % (11.5-14.0) 08/18/19 08:30 Seg Neutrophils % 68.3 % (42-78) 08/18/19 08:30 Chloride 106 mmol/L (98-107) 08/18/19 08:30 Carbon Dioxide 27 mmol/L (22-30) 08/18/19 08:30 Anion Gap 6 (5-19) 08/18/19 08:30 Est GFR ( Amer) > 60 (>60) 08/18/19 08:30 Glucose 114 mg/dL (75-110) H 08/18/19 08:30 Calcium 9.6 mg/dL (8.4-10.2) 08/18/19 08:30 Total Bilirubin 0.4 mg/dL (0.2-1.3) 08/18/19 08:30 AST 34 U/L (17-59) 08/18/19 08:30 Alkaline Phosphatase 83 U/L (38-126) 08/18/19 08:30 Total Protein 7.6 g/dL (6.3-8.2) 08/18/19 08:30 Albumin 4.3 g/dL (3.5-5.0) 08/18/19 08:30 Lipase 77.4 U/L (23-300) 08/18/19 08:30 08/18/19 08/18/19 08:30 08:30 Creatine Kinase 114 CK-MB (CK-2) 2.35 Troponin I 0.043 Assessment & Plan - Diagnosis (1) Chest pain Qualifiers: Chest pain type: unspecified Qualified Code(s): R07.9 - Chest pain, unspecified Is this a current diagnosis for this admission?: Yes Plan: 44-year-old male with cardiac risk factors of gender, smoking and possible hypertension and unknown lipids who reports to the emergency room for evaluation of chest pain that began 2 days ago. The patient is currently asymptomatic with a normal EKG. His first troponin, although detectable, is still negative even after many hours of chest pain last night. Given his cardiac risk factors, normal EKG and that the patient has remained asymptomatic we will pursue noninvasive re-stratification prior to discharge once his second troponin comes back negative and if the patient remains asymptomatic. Recommendations: -Echocardiogram to assess for structural heart disease prior to stress test. -Exercise stress test if second troponin negative. (3) Hypertension Qualifiers: Hypertension type: essential hypertension Qualified Code(s): I10 - Essential (primary) hypertension Is this a current diagnosis for this admission?: Yes Plan: The patient does not have a known history of hypertension however his blood pressure in the emergency room is elevated. Recommendations: -Follow-up with primary care provider. (4) Tobacco use disorder Is this a current diagnosis for this admission?: Yes Plan: The patient has a significant history of tobacco use since age 16 years. He was counseled about the need to quit smoking MANAV to prevent both pulmonary and cardiovascular complications. He will need to follow-up with his primary care provider to address this issue in depth.
[2019-08-18] MEDS ORDERED: ASPIRIN 81 MG TABLET, CHEWABLE PO ONE (11:42)
[2019-08-18] MEDS ORDERED: NITROGLYCERIN 2% OINTMENT 1 GM PACKET TP ONE (11:44)
--- NOTE | 2019-08-18 12:50 | XCELERA REPORT ---
[address] [address] Transthoracic Echocardiogram Report Name: HEMANTH BOTELLO Age: 44 yrs Gender: Male : 1975 Patient Status: Emergency Patient Location: ER Study Date: 08/18/2019 11:45 AM Height: 72 in Weight: 294 lb BSA: 2.5 m2 Procedure: A complete two-dimensional transthoracic echocardiogram was performed (2D, M-mode, spectral and color flow Doppler). The study was technically adequate with some images being suboptimal in quality. Reason For Study: chest pain Ordering Physician: TERESSA JIMENEZ Performed By: Magui Aranda Interpretation Summary The left ventricle is normal in size, thickness and function. Left ventricular systolic function is normal. The Ejection Fraction estimate is 55-60%. Doppler measurements suggest normal left ventricular diastolic function. Very mild hypokinesis of the left ventricular apex. There is no thrombus. Mild LAE. Trace MR, trace TR. Aortic and pulmonic valves not well visualized. No prior studies for comparison. MMode/2D Measurements & Calculations RVDd: 2.9 cm LVIDd: 6.1 cm FS: 38.6 % Ao root diam: 2.2 cm IVSd: 1.0 cm LVIDs: 3.8 cm EDV(Teich): 188.3 ml Ao root area: 3.8 cm2 LVPWd: 1.00 cm ESV(Teich): 60.4 ml ACS: 2.2 cm EF(Teich): 67.9 % LA dimension: 4.3 cm Doppler Measurements & Calculations MV E max eriberto: MV P1/2t max eriberto: Ao V2 max: LV V1 max P.7 cm/sec 106.0 cm/sec 181.2 cm/sec 5.9 mmHg MV A max eriberto: MV P1/2t: 62.3 msec Ao max PG: LV V1 max: 97.9 cm/sec 13.1 mmHg 121.2 cm/sec MV E/A: 1.1 MVA(P1/2t): 3.5 cm2 MV dec slope: 498.3 cm/sec2 MV dec time: 0.21 sec PA V2 max: TR max eriberto: MV P1/2t-pr_phl: 94.3 cm/sec 267.1 cm/sec 62.3 msec PA max P.6 mmHgTR max P.5 mmHg Left Ventricle The left ventricle is normal in size, thickness and function. Left ventricular systolic function is normal. The Ejection Fraction estimate is 55-60%. Doppler measurements suggest normal left ventricular diastolic function. Very mild hypokinesis of the left ventricular apex. There is no thrombus. Right Ventricle The right ventricle is normal in size, thickness and function. The right ventricular systolic function is normal. Atria The right atrium is normal. The left atrium is mildly dilated. The interatrial septum is intact with no evidence for an atrial septal defect. Mitral Valve The mitral valve is normal in structure and function. There is no mitral valve stenosis. There is a trace amount of mitral regurgitation. Aortic Valve The aortic valve is not well visualized secondary to technical limitations. Tricuspid Valve The tricuspid is normal in structure and function. There is a trace amount of tricuspid regurgitation. Pulmonic Valve The pulmonic valve is not well visualized. Great Vessels The inferior vena cava appeared normal. Effusions There is no pericardial effusion. : TERESSA JIMENEZ, Teressa
--- NOTE | 2019-08-18 14:13 | ER Document Report ---
ED General - General Chief Complaint: Chest Pain Stated Complaint: CHEST PAIN Time Seen by Provider: 08/18/19 07:36 Primary Care Provider: EILEEN BRODY MD [Primary Care Provider] - Follow up as needed Mode of Arrival: Ambulatory Notes: Patient is being transferred to [facility]. Reassessed at 2:10 PM. Stable for transfer. TRAVEL OUTSIDE OF THE [place] IN LAST 30 DAYS: No - Related Data Allergies/Adverse Reactions: Penicillins Allergy (Verified 11/06/17 13:15) Home Medications: Xarelto. Tylenol. Ibuprofen. Prilosec Past Medical History - General Information source: Patient - Social History Smoking Status: Current Every Day Smoker Cigarette use (# per day): Yes Chew tobacco use (# tins/day): No Frequency of alcohol use: Occasional Drug Abuse: None Lives with: Spouse/Significant other Family History: Reviewed & Not Pertinent Patient has suicidal ideation: No Patient has homicidal ideation: No - Past Medical History Cardiac Medical History: Denies: Hx Coronary Artery Disease, Hx Heart Attack, Hx Hypertension Pulmonary Medical History: Denies: Hx Asthma, Hx Bronchitis, Hx COPD, Hx Pneumonia Neurological Medical History: Denies: Hx Cerebrovascular Accident, Hx Seizures Renal/ Medical History: Denies: Hx Peritoneal Dialysis Malignancy Medical History: Reports Hx Colorectal Cancer Musculoskeletal Medical History: Denies Hx Arthritis Psychiatric Medical History: Denies: Hx Depression Past Surgical History: Reports: Hx Abdominal Surgery - x2, Hx Adenoidectomy, Hx Myringotomy, Hx Tonsillectomy, Other - Lasix as surgery - Immunizations Immunizations up to date: No Hx Diphtheria, Pertussis, Tetanus Vaccination: No Physical Exam - Vital signs Vitals: Temp Pulse Resp BP Pulse Ox 97.8 F 80 18 172/96 H 98 08/18/19 07:25 08/18/19 07:25 08/18/19 07:25 08/18/19 07:25 08/18/19 07:25 Course - Vital Signs Vital signs: Temp Pulse Resp BP Pulse Ox 97.8 F 67 21 H 135/87 H 98 08/18/19 13:00 08/18/19 09:32 08/18/19 13:01 08/18/19 13:00 08/18/19 13:01 - Laboratory Result Diagrams: 08/18/19 08:30 08/18/19 08:30 Laboratory results interpreted by me: 08/18/19 08/18/19 08:30 08:30 WBC 10.8 H Glucose 114 H Discharge - Discharge Clinical Impression: NSTEMI (non-ST elevated myocardial infarction), Elevated troponin I level Chest pain Qualifiers: Chest pain type: unspecified Qualified Code(s): R07.9 - Chest pain, unspecified Condition: Stable Disposition: [facility] Referrals: EILEEN BRODY MD [Primary Care Provider] - Follow up as needed
[2019-08-18 14:22] VITALS: BP 130/86
== END 2019-08-18 14:23 | disposition short-term general hospital (02) ==
LOC: ER 07:05
DX: I21.4 Non-ST elevation (NSTEMI) myocardial infarction (principal); F17.210 Nicotine dependence, cigarettes, uncomplicated; Z79.01 Long term (current) use of anticoagulants; Z79.1 Long term (current) use of non-steroidal anti-inflammatories (NSAID); Z79.899 Other long term (current) drug therapy; Z88.0 Allergy status to penicillin; Z85.048 Personal history of other malignant neoplasm of rectum, rectosigmoid junction, and anus
CPT/HCPCS: 36415; 71045; 80053; 82550; 82553; 83690; 84484; 85025; 93005; 93010; 93306; 99285

== ENCOUNTER 2019-08-30 22:47 | Emergency (ER) | payer SELFPAY ==
[2019-08-30] MEDS ORDERED: ASPIRIN 81 MG TABLET, CHEWABLE PO ONE (23:44)
--- NOTE | 2019-08-30 23:45 | ER Document Report ---
ED Medical Screen (RME) - General Chief Complaint: Chest Pain Stated Complaint: CHEST PAINS Time Seen by Provider: 08/30/19 23:41 Primary Care Provider: EILEEN BRODY MD [Primary Care Provider] - Follow up as needed Notes: HPI: 44-year-old male presenting for chest pain that began 3 to 4 hours ago as a pressure sensation in the midsternal region with some radiation to the left shoulder. No shortness of breath. Patient states he was diagnosed with a myocardial infarction 2 weeks ago was transferred and had a 90% blockage in 1 of his arteries and received a stent. He states he is on Plavix and Xarelto at thi s time. Also has a cancer history for which he takes chemotherapy every 3 weeks last chemotherapy was approximately 3 weeks ago. States he is otherwise in remission. States he does have a port in the chest. I have greeted and performed a rapid initial assessment of this patient. A comprehensive ED assessment and evaluation of the patient, analysis of test results and completion of the medical decision making process will be conducted by additional ED providers PHYSICAL EXAMINATION: Lung sounds are clear to auscultation, regular rate and rhythm. EKG normal sinus rhythm without visible ectopy at this time. Spoke with the charge nurse regarding bed placement given the history I have greeted and performed a rapid initial assessment of this patient. A comprehensive ED assessment and evaluation of the patient, analysis of test results and completion of medical decision making process will be conducted by an additional ED providers. TRAVEL OUTSIDE OF THE [place] IN LAST 30 DAYS: No - Related Data Allergies/Adverse Reactions: Penicillins Allergy (Verified 11/06/17 13:15) Past Medical History - Past Medical History Cardiac Medical History: Denies: Hx Coronary Artery Disease, Hx Heart Attack, Hx Hypertension Pulmonary Medical History: Denies: Hx Asthma, Hx Bronchitis, Hx COPD, Hx Pneumonia Neurological Medical History: Denies: Hx Cerebrovascular Accident, Hx Seizures Renal/ Medical History: Denies: Hx Peritoneal Dialysis Malignancy Medical History: Reports Hx Colorectal Cancer Musculoskeltal Medical History: Denies Hx Arthritis Psychiatric Medical History: Denies: Hx Depression Past Surgical History: Reports: Hx Abdominal Surgery - x2, Hx Adenoidectomy, Hx Myringotomy, Hx Tonsillectomy, Other - Lasix as surgery - Immunizations Immunizations up to date: No Hx Diphtheria, Pertussis, Tetanus Vaccination: No Physical Exam - Vital signs Vitals: Temp Pulse Resp BP Pulse Ox 98.0 F 80 18 149/95 H 96 08/30/19 22:59 08/30/19 22:59 08/30/19 22:59 08/30/19 22:59 08/30/19 22:59 Course - Vital Signs Vital signs: Temp Pulse Resp BP Pulse Ox 98.0 F 80 18 149/95 H 96 08/30/19 22:59 08/30/19 22:59 08/30/19 22:59 08/30/19 22:59 08/30/19 22:59 Doctor's Discharge - Discharge Referrals: EILEEN BRODY MD [Primary Care Provider] - Follow up as needed
--- NOTE | 2019-08-31 00:13 | ER Document Report ---
ED Cardiac - General Chief Complaint: Chest Pressure Stated Complaint: CHEST PAINS Time Seen by Provider: 08/30/19 23:41 Primary Care Provider: EILEEN SALGUERO MD [Primary Care Provider] - Follow up as needed Notes: Patient is a 44-year-old male that comes to the emergency department for chief complaint of left shoulder pain and also pressure sensation in the center of his chest. 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 Symptoms did improve and he currently denies any significant discomfort. He denies nausea or vomiting, cough, specific injury, fever/chills. Patient does have a history of NSTEMI with stenting in 1 vessel at [facility] after he was transferred from here on 08/18/2019. He follows with cardiology Dr. Cunningham. Patient also has a history of colorectal cancer in remission on "maintenance treatments" with Dr. Salguero. Patient is on metoprolol, atorvastatin, Xarelto because of his port, and on Plavix. He is a former smoker. He denies recreational drugs. TRAVEL OUTSIDE OF THE [place] IN LAST 30 DAYS: No - Related Data Allergies/Adverse Reactions: Penicillins Allergy (Verified 11/06/17 13:15) Home Medications: Clopidogrel. Xarelto. Atorvastatin. Metoprolol Past Medical History - General Information source: Patient - Social History Smoking Status: Former Smoker Frequency of alcohol use: None Drug Abuse: None Lives with: Family Family History: Reviewed & Not Pertinent Patient has suicidal ideation: No Patient has homicidal ideation: No - Past Medical History Cardiac Medical History: Reports: Hx Heart Attack, Hx Hypercholesterolemia, Hx Hypertension Denies: Hx Coronary Artery Disease Pulmonary Medical History: Denies: Hx Asthma, Hx Bronchitis, Hx COPD, Hx Pneumonia Neurological Medical History: Denies: Hx Cerebrovascular Accident, Hx Seizures Renal/ Medical History: Denies: Hx Peritoneal Dialysis Malignancy Medical History: Reports Hx Colorectal Cancer Musculoskeletal Medical History: Denies Hx Arthritis Psychiatric Medical History: Denies: Hx Depression Past Surgical History: Reports: Hx Abdominal Surgery - For colorectal cancer, Hx Adenoidectomy, Hx Myringotomy, Hx Tonsillectomy, Other - Lasix as surgery - Immunizations Immunizations up to date: Yes Hx Diphtheria, Pertussis, Tetanus Vaccination: Yes Review of Systems - Review of Systems Constitutional: No symptoms reported EENT: No symptoms reported Cardiovascular: See HPI Respiratory: No symptoms reported Gastrointestinal: No symptoms reported Genitourinary: No symptoms reported Male Genitourinary: No symptoms reported Musculoskeletal: See HPI Skin: No symptoms reported Hematologic/Lymphatic: No symptoms reported Neurological/Psychological: No symptoms reported Physical Exam - Vital signs Vitals: Temp Pulse Resp BP Pulse Ox 98.0 F 80 18 149/95 H 96 08/30/19 22:59 08/30/19 22:59 08/30/19 22:59 08/30/19 22:59 08/30/19 22:59 - Notes Notes: GENERAL: Alert, interacts well. No acute distress. HEAD: Normocephalic, atraumatic. EYES: Pupils equal, round, and reactive to light. Extraocular movements intact. ENT: Oral mucosa moist, tongue midline. Oropharynx unremarkable. Airway patent. NECK: Full range of motion. Supple. Trachea midline. No lymphadenopathy. LUNGS: Clear to auscultation bilaterally, no wheezes, rales, or rhonchi. No respiratory distress. See extremities exam. HEART: Regular rate and rhythm. No murmur ABDOMEN: Soft, non-tender. Non-distended. EXTREMITIES: There is tenderness over the left lateral upper pectoralis muscle of the chest extending into the area just anterior to the humerus. This is worsened with range of motion of the left arm over the head. Patient winces when he tries to lift his arm over his head. 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 No edema, normal radial and dorsalis pedis pulses bilaterally. No cyanosis. BACK: no cervical, thoracic, lumbar midline tenderness. No saddle anesthesia, normal distal neurovascular exam. Moves all extremities in full range of motion. NEUROLOGICAL: Alert and oriented x3. Normal speech. Cranial nerves II through XII grossly intact. Strength 5/5 in all extremities. PSYCH: Normal affect, normal mood. SKIN: Warm, dry, normal turgor. No rashes or lesions noted. Course - Re-evaluation Re-evalutation: Patient received aspirin in triage, feels improved, still has pain especially over his left shoulder but this is reproducible with movement. Patient declines anything for pain now. Patient is well-appearing, EKG with no acute changes, work-up pending. CBC shows very mild leukocytosis at 11,000 with no shift. No anemia. Unremarkable otherwise. Chemistry is normal. Troponin is negative. Chest x- ray is unremarkable. Port-A-Cath is unremarkable on exam and x-ray. I discussed with patient. We will perform delta troponin and reevaluate. He does ask for something for pain so he can sleep, this was provided, symptoms completely resolved. Second opponent is negative. Discussed with Dr. Gomez. Because of patient's very specific musculoskeletal exam, normal EKG, negative troponins patient can be discharged with symptom management, he is to call his paediatrician, he is to return for any concerning symptoms. Discussed this with patient in detail. Patient states appreciation and agreement. Stable and asymptomatic at time of discharge except for with motion of the left shoulder. - Vital Signs Vital signs: Temp Pulse Resp BP Pulse Ox 98.0 F 80 18 129/79 H 96 08/30/19 22:59 08/30/19 22:59 08/31/19 01:01 08/31/19 01:00 08/31/19 01:01 - Laboratory Result Diagrams: 08/31/19 00:09 08/31/19 00:09 Laboratory results interpreted by me: 08/31/19 00:09 WBC 11.8 H - EKG Interpretation by Me Additional EKG results interpreted by me: EKG shows a sinus rhythm at a rate of 81, QTC of 4 9, normal axis. No T wave inversions or ST segment changes in consecutive leads. Machine reads as normal. Discharge - Discharge Clinical Impression: Chest wall pain Chest pain Qualifiers: Chest pain type: unspecified Qualified Code(s): R07.9 - Chest pain, unspecified Left shoulder pain Qualifiers: Chronicity: acute Qualified Code(s): M25.512 - Pain in left shoulder Condition: Stable Disposition: HOME, SELF-CARE Instructions: Oral Narcotic Medication ([facility]) Additional Instructions: Your work-up today including EKG, 2 heart enzymes, chest x-ray, and general labs do not show any concerning findings. Based on your examination and your work-up this appears to be musculoskeletal. I am also concerned that you have injured your rotator cuff. I recommend ice 3-4 times a day for the first day, afterwards heat to your upper back and shoulder can help. Btzq-rul-wxmvugt medications for pain, gentle massage and stretches, and the muscle relaxer especially at night to help you sleep are also very helpful. Call your paediatrician today to establish close follow-up. Return if you worsen including severe worsening pain, passing out, difficulty breathing, fever, vomiting, or any other concerning symptoms. Prescriptions: Cyclobenzaprine HCl 1 - 2 tab PO Q8H PRN #20 tablet PRN Reason: Forms: Return to Work Referrals: EILEEN SALGUERO MD [Primary Care Provider] - Follow up as needed
[2019-08-31 00:21] LABS: ABSOLUTE BASOPHILS # (AUTO) 0.1 10^3/uL (0.0-0.2); ABSOLUTE EOSINOPHILS # (AUTO) 0.2 10^3/uL (0.0-0.6); ABSOLUTE LYMPHOCYTES (AUTO) 2.9 10^3/uL (0.5-4.7); ABSOLUTE NEUT (AUTO) 7.6 10^3/uL (1.7-8.2); BASOPHILS % (AUTO) 0.8 % (0-2); EOSINOPHILS % (AUTO) 1.4 % (0-6); HEMATOCRIT 41.2 % (37.9-51.0); HEMOGLOBIN 14.6 g/dL (13.5-17.0); LYMPHOCYTES % (AUTO) 24.8 % (13-45); MEAN CORPUSCULAR HEMOGLOBIN 33.3 pg (27.0-33.4); MEAN CORPUSCULAR HGB CONC 35.4 g/dL (32.0-36.0); MEAN CORPUSCULAR VOLUME 94 fl (80-97); MONOCYTES % (AUTO) 8.4 % (3-13); PLATELET COUNT 280 10^3/uL (150-450); RED BLOOD COUNT 4.39 10^6/uL (4.35-5.55); RED CELL DISTRIBUTION WIDTH 13.4 % (11.5-14.0); SEGMENTED NEUTROPHILS % (AUTO) 64.6 % (42-78); TOTAL CELLS COUNTED % (AUTO) 100 %; WHITE BLOOD COUNT 11.8 10^3/uL (4.0-10.5)
[2019-08-31 00:27] LABS: INTERNATIONAL RATION (INR) 0.94; PROTHROMBIN TIME 12.6 SEC (11.4-15.4)
[2019-08-31 00:38] LABS: ALBUMIN 4.5 g/dL (3.5-5.0); ALKALINE PHOSPHATASE 69 U/L (38-126); ANION GAP 7 (5-19); ASPARTATE AMINO TRANSFERASE 34 U/L (17-59); BILIRUBIN,TOTAL 0.4 mg/dL (0.2-1.3); BLOOD UREA NITROGEN 13 mg/dL (7-20); CALCIUM 9.5 mg/dL (8.4-10.2); CARBON DIOXIDE 27 mmol/L (22-30); CHLORIDE 105 mmol/L (98-107); CREATINE KINASE 113 U/L (55-170); GLUCOSE 105 mg/dL (75-110); POTASSIUM 3.8 mmol/L (3.6-5.0); TOTAL PROTEIN 7.4 g/dL (6.3-8.2)
--- NOTE | 2019-08-31 01:04 | RADIOLOGY REPORT (SQ) ---
EXAM DESCRIPTION: XR CHEST 1 VIEW COMPLETED DATE/TME: 08/30/2019 23:44 CLINICAL HISTORY: 44 years, Male, chest pain COMPARISON: 08/18/2019 chest NUMBER OF VIEWS: 1 TECHNIQUE: Portable chest LIMITATIONS: None. FINDINGS: The heart size is normal. [id number]-c-Gkef catheter in place. Lungs are clear. No pneumothorax IMPRESSION: No acute cardiopulmonary process copyright 2010 [employer]- All Rights Reserved
[2019-08-31] MEDS ORDERED: ONDANSETRON HCL INJ/PF 4 MG/2 ML SDV IV ONE (01:08)
[2019-08-31] MEDS ORDERED: MORPHINE SULFATE 10 MG/ML INJ IV ONE (01:08)
[2019-08-31] MEDS ORDERED: HYDROCODONE/ACETAMINOPHEN 5-325 MG (6 TAB/ER DISP) PO PRN (04:55)
[2019-08-31 05:18] VITALS: BP 138/77
--- NOTE | 2019-08-31 07:41 | EKG REPORT ---
SEVERITY:- NORMAL ECG - SINUS RHYTHM : Confirmed by: Bj Potts MD 31-Aug-2019 07:41:31
== END 2019-08-31 05:20 | disposition home or self-care (01) ==
LOC: ER 22:47
DX: R07.9 Chest pain, unspecified (principal); R07.89 Other chest pain; M25.512 Pain in left shoulder; E78.00 Pure hypercholesterolemia, unspecified; I10 Essential (primary) hypertension; Z88.0 Allergy status to penicillin; Z85.038 Personal history of other malignant neoplasm of large intestine; Z79.02 Long term (current) use of antithrombotics/antiplatelets; I25.2 Old myocardial infarction
CPT/HCPCS: 93005; 99285; 96374; 96375; 36415; 82550; 85025; 85610; 80053; 84484; 71045; 93010; J2270; J2405

== ENCOUNTER → 2019-12-01 | Outpatient (CLI) | payer SELFPAY ==
--- NOTE | 2019-12-01 13:14 | RADIOLOGY REPORT (SQ) ---
EXAM DESCRIPTION: CT ABD/PELVIS WITH IV ORAL IMAGES COMPLETED DATE/TIME: 12/01/2019 8:48 am REASON FOR STUDY: APPENDIX CANCER C18.1 MALIGNANT NEOPLASM OF APPENDIX COMPARISON: 03/18/2019 and 11/25/2018. TECHNIQUE: CT scan of the abdomen and pelvis performed using helical scanning technique with dynamic intravenous contrast injection. No oral contrast. Images reviewed with lung, soft tissue, and bone windows. Reconstructed coronal and sagittal MPR images reviewed. Delayed images for evaluation of the urinary system also acquired. All images stored on PACS. All CT scanners at this facility use dose modulation, iterative reconstruction, and/or weight based d osing when appropriate to reduce radiation dose to as low as reasonably achievable (ALARA). [facility]: Dose Right [facility]: CareDose [facility]: Dose Right [facility]: Teradose 4D [facility]: [employer] CONTRAST TYPE AND DOSE: contrast/concentration: Isovue 350.00 mmol/ml; Total Contrast Delivered: 100 .0 ml; Total Saline Delivered: 72.0 ml RENAL FUNCTION: BUN 20 creatinine 0.82. RADIATION DOSE: . LIMITATIONS: None. FINDINGS: LOWER CHEST: See separate report of the CT of the chest. LIVER: Normal size. No masses. No dilated ducts. SPLEEN: Normal size. No focal lesions. PANCREAS: No masses. No significant calcifications. No adjacent inflammation or peripancreatic fluid collections. Pancreatic duct not dilated. GALLBLADDER: No identified stones by CT criteria. No inflammatory changes to suggest cholecystitis. ADRENAL GLANDS: No significant masses or asymmetry. RIGHT KIDNEY AND URETER: No solid masses. No significant calcifications. No hydronephrosis or hyd roureter. LEFT KIDNEY AND URETER: No solid masses. No significant calcifications. No hydronephrosis or hydr oureter. AORTA AND VESSELS: No aneurysm. No dissection. Renal arteries, SMA, celiac without stenosis. RETROPERITONEUM: No retroperitoneal adenopathy, hemorrhage or masses. BOWEL AND PERITONEAL CAVITY: Previous right hemicolectomy. No masses or inflammatory changes. No deepika e fluid or peritoneal masses. APPENDIX: Normal. PELVIS: No mass. No free fluid. Normal bladder. ABDOMINAL WALL: No masses. Mild diastases of the rectus abdominus muscles. Small umbilical hernia. BONES: No significant or acute findings. OTHER: No other significant finding. IMPRESSION: NO SIGNIFICANT OR ACUTE FINDING IN THE ABDOMEN OR PELVIS ON CT SCAN WITH IV CONTRAST. N O EVIDENCE OF RESIDUAL OR RECURRENT DISEASE OR METASTASES. TECHNICAL DOCUMENTATION: JOB ID: [id number] Quality ID # 436: Final reports with documentation of one or more dose reduction techniques (e.g., Au tomated exposure control, adjustment of the mA and/or kV according to patient size, use of iterative reconstruction technique) 2010 [employer]- All Rights Reserved Reading location - IP/workstation name: [email or web address]
--- NOTE | 2019-12-01 13:19 | RADIOLOGY REPORT (SQ) ---
EXAM DESCRIPTION: CT CHEST WITH IMAGES COMPLETED DATE/TIME: 12/01/2019 8:48 am REASON FOR STUDY: APPENDIX CANCER C18.1 MALIGNANT NEOPLASM OF APPENDIX COMPARISON: 03/18/2019 and 11/25/2018. TECHNIQUE: CT scan of the chest performed using helical scanning technique with dynamic intravenous contrast injection. Images reviewed with lung, soft tissue and bone windows. Reconstructed coronal and sagittal MPR and MIP images reviewed. All images stored on PACS. All CT scanners at this facility use dose modulation, iterative reconstruction, and/or weight based d osing when appropriate to reduce radiation dose to as low as reasonably achievable (ALARA). [facility]: Dose Right [facility]: CareDose [facility]: Dose Right [facility]: Teradose 4D [facility]: [employer] CONTRAST TYPE AND DOSE: 100 mL Omnipaque 350- low osmolar. RENAL FUNCTION: BUN 20 creatinine 0.82. RADIATION DOSE: CT Rad equipment meets quality standard of care and radiation dose reduction techniq ues were employed. CTDIvol: 19.1 - 19.6 mGy. DLP: 3382 mGy-cm. . LIMITATIONS: None. FINDINGS: LUNGS AND PLEURA: New 8 mm nodule in the left upper lobe (axial series 6, image 24). Othe rwise clear. No pneumothorax. No effusions. HILAR AND MEDIASTINAL STRUCTURES: No identified masses or abnormal nodes. HEART AND VASCULAR STRUCTURES: No aneurysm or dissection. No central pulmonary emboli. No pericardi al effusion. HARDWARE: Vascular port. UPPER ABDOMEN: See separate report of the CT of the abdomen. THYROID AND OTHER SOFT TISSUES: No masses. No adenopathy. BONES: No significant finding. OTHER: No other significant finding. IMPRESSION: NEW 8 MM NODULE IN THE LEFT UPPER LOBE. THIS IS CONCERNING FOR AN EARLY METASTASIS. TECHNICAL DOCUMENTATION: JOB ID: [id number] Quality ID # 436: Final reports with documentation of one or more dose reduction techniques (e.g., Au tomated exposure control, adjustment of the mA and/or kV according to patient size, use of iterative reconstruction technique) 2010 [employer]- All Rights Reserved Reading location - IP/workstation name: [email or web address]
== END ==
LOC: RAD 08:03
PROVIDERS: ATTEND Nurse Practitioner Family
DX: C18.1 Malignant neoplasm of appendix (principal); R91.1 Solitary pulmonary nodule; K42.9 Umbilical hernia without obstruction or gangrene
CPT/HCPCS: 71260; 74177

== ENCOUNTER → 2020-02-29 | Outpatient (CLI) | payer SELFPAY ==
--- NOTE | 2020-02-29 09:38 | RADIOLOGY REPORT (SQ) ---
EXAM DESCRIPTION: CT CHEST WITH; CT ABD/PELVIS WITH IV ORAL IMAGES COMPLETED DATE/TIME: 02/29/2020 9:24 am; 02/29/2020 9:25 am REASON FOR STUDY: APPENDIX CANCER C18.1 MALIGNANT NEOPLASM OF APPENDIX CONTRAST TYPE AND DOSE: contrast/concentration: Isovue 350.00 mmol/ml; Total Contrast Delivered: 100 .0 ml; Total Saline Delivered: 68.0 ml RENAL FUNCTION: BUN 21, creatinine 0.84 COMPARISON: None. TECHNIQUE: CT scan of the chest performed using helical scanning technique with dynamic intravenous contrast injection. Images reviewed with lung, soft tissue and bone windows. Reconstructed coronal a nd sagittal MPR images reviewed. All images stored on PACS. All CT scanners at this facility use dose modulation, iterative reconstruction, and/or weight based d osing when appropriate to reduce radiation dose to as low as reasonably achievable (ALARA). [facility]: Dose Right [facility]: CareDose [facility]: Dose Right [facility]: Teradose 4D [facility]: [employer] RADIATION DOSE: . LIMITATIONS: None. FINDINGS: AXILLAE: No adenopathy. CHEST WALL: No masses. No subcutaneous air. LUNGS: Small nodule in left upper lobe now measures 6.8 mm in greatest diameter. No new nodules. No consolidation. No pneumothorax. PLEURA: No effusions. No calcifications. THYROID: No masses or significant asymmetry. HILAR AND MEDIASTINAL STRUCTURES: No identified masses or abnormal nodes. AORTA AND GREAT VESSELS: No aneurysm. No dissection. PULMONARY ARTERIES: No identified pulmonary emboli. Study not optimized for the pulmonary arteries. HEART: No pericardial effusion. HARDWARE AND LIFELINES: Zjjvuj-O-Tyzt is in place. BONES: No significant finding. OTHER: No other significant finding. IMPRESSION: Left upper lobe pulmonary nodule is slightly smaller in size measured at 6.8 mm. No oth er significant findings. COMPARISON: None. RADIATION DOSE: mGy. TECHNIQUE: CT scan of the abdomen and pelvis performed with intravenous and oral contrast using zayra tanika scanning technique with dynamic intravenous contrast injection. Images reviewed with lung, soft tissue and bone windows. Reconstructed coronal and sagittal MPR images reviewed. Delayed images for evaluation of the urinary system also acquired and evaluated. All images stored on PACS. All CT scanners at this facility use dose modulation, iterative reconstruction, and/or weight based d osing when appropriate to reduce radiation dose to as low as reasonably achievable (ALARA). [facility]: Dose Right [facility]: [employer] [facility]: Dose Right [facility]: Teradose 4D [facility]: [employer] FINDINGS: LIVER: Normal size. No masses. No dilated ducts. SPLEEN: Normal size. No focal lesions. PANCREAS: No masses. No significant calcifications. No adjacent inflammation or peripancreatic flui d collections. Pancreatic duct not dilated. GALLBLADDER: No identified stones by CT criteria. No inflammatory changes to suggest cholecystitis. ADRENAL GLANDS: No significant masses or asymmetry. RIGHT KIDNEY AND URETER: No solid masses. No significant calcifications. No hydronephrosis or hyd roureter. LEFT KIDNEY AND URETER: No solid masses. No significant calcifications. No hydronephrosis or hydr oureter. AORTA AND VESSELS: No aneurysm. No dissection. Renal arteries, SMA, celiac without stenosis. RETROPERITONEUM: Small periaortic lymph nodes stable in appearance. None are pathologic based on siz e criteria. LARGE AND SMALL BOWEL: No dilatation. No masses. No wall thickening. APPENDIX: Surgically absent. ABDOMINAL WALL: Small umbilical hernia containing omental fat only. PERITONEAL CAVITY: No free air. No free fluid. No peritoneal implants or masses. PELVIS: No mass or free fluid. Normal bladder. BONES: No significant or acute findings. OTHER: No other significant finding. IMPRESSION: No evidence of metastatic disease in the abdomen or pelvis. TECHNICAL DOCUMENTATION: JOB ID: [id number] Quality ID # 436: Final reports with documentation of one or more dose reduction techniques (e.g., Au tomated exposure control, adjustment of the mA and/or kV according to patient size, use of iterative reconstruction technique) 2010 [employer]- All Rights Reserved Reading location - IP/workstation name: [email or web address]
--- NOTE | 2020-02-29 09:38 | RADIOLOGY REPORT (SQ) ---
EXAM DESCRIPTION: CT CHEST WITH; CT ABD/PELVIS WITH IV ORAL IMAGES COMPLETED DATE/TIME: 02/29/2020 9:24 am; 02/29/2020 9:25 am REASON FOR STUDY: APPENDIX CANCER C18.1 MALIGNANT NEOPLASM OF APPENDIX CONTRAST TYPE AND DOSE: contrast/concentration: Isovue 350.00 mmol/ml; Total Contrast Delivered: 100 .0 ml; Total Saline Delivered: 68.0 ml RENAL FUNCTION: BUN 21, creatinine 0.84 COMPARISON: None. TECHNIQUE: CT scan of the chest performed using helical scanning technique with dynamic intravenous contrast injection. Images reviewed with lung, soft tissue and bone windows. Reconstructed coronal a nd sagittal MPR images reviewed. All images stored on PACS. All CT scanners at this facility use dose modulation, iterative reconstruction, and/or weight based d osing when appropriate to reduce radiation dose to as low as reasonably achievable (ALARA). [facility]: Dose Right [facility]: CareDose [facility]: Dose Right [facility]: Teradose 4D [facility]: [employer] RADIATION DOSE: . LIMITATIONS: None. FINDINGS: AXILLAE: No adenopathy. CHEST WALL: No masses. No subcutaneous air. LUNGS: Small nodule in left upper lobe now measures 6.8 mm in greatest diameter. No new nodules. No consolidation. No pneumothorax. PLEURA: No effusions. No calcifications. THYROID: No masses or significant asymmetry. HILAR AND MEDIASTINAL STRUCTURES: No identified masses or abnormal nodes. AORTA AND GREAT VESSELS: No aneurysm. No dissection. PULMONARY ARTERIES: No identified pulmonary emboli. Study not optimized for the pulmonary arteries. HEART: No pericardial effusion. HARDWARE AND LIFELINES: Bntise-O-Zunu is in place. BONES: No significant finding. OTHER: No other significant finding. IMPRESSION: Left upper lobe pulmonary nodule is slightly smaller in size measured at 6.8 mm. No oth er significant findings. COMPARISON: None. RADIATION DOSE: mGy. TECHNIQUE: CT scan of the abdomen and pelvis performed with intravenous and oral contrast using zayra tanika scanning technique with dynamic intravenous contrast injection. Images reviewed with lung, soft tissue and bone windows. Reconstructed coronal and sagittal MPR images reviewed. Delayed images for evaluation of the urinary system also acquired and evaluated. All images stored on PACS. All CT scanners at this facility use dose modulation, iterative reconstruction, and/or weight based d osing when appropriate to reduce radiation dose to as low as reasonably achievable (ALARA). [facility]: Dose Right [facility]: [employer] [facility]: Dose Right [facility]: Teradose 4D [facility]: [employer] FINDINGS: LIVER: Normal size. No masses. No dilated ducts. SPLEEN: Normal size. No focal lesions. PANCREAS: No masses. No significant calcifications. No adjacent inflammation or peripancreatic flui d collections. Pancreatic duct not dilated. GALLBLADDER: No identified stones by CT criteria. No inflammatory changes to suggest cholecystitis. ADRENAL GLANDS: No significant masses or asymmetry. RIGHT KIDNEY AND URETER: No solid masses. No significant calcifications. No hydronephrosis or hyd roureter. LEFT KIDNEY AND URETER: No solid masses. No significant calcifications. No hydronephrosis or hydr oureter. AORTA AND VESSELS: No aneurysm. No dissection. Renal arteries, SMA, celiac without stenosis. RETROPERITONEUM: Small periaortic lymph nodes stable in appearance. None are pathologic based on siz e criteria. LARGE AND SMALL BOWEL: No dilatation. No masses. No wall thickening. APPENDIX: Surgically absent. ABDOMINAL WALL: Small umbilical hernia containing omental fat only. PERITONEAL CAVITY: No free air. No free fluid. No peritoneal implants or masses. PELVIS: No mass or free fluid. Normal bladder. BONES: No significant or acute findings. OTHER: No other significant finding. IMPRESSION: No evidence of metastatic disease in the abdomen or pelvis. TECHNICAL DOCUMENTATION: JOB ID: [id number] Quality ID # 436: Final reports with documentation of one or more dose reduction techniques (e.g., Au tomated exposure control, adjustment of the mA and/or kV according to patient size, use of iterative reconstruction technique) 2010 [employer]- All Rights Reserved Reading location - IP/workstation name: [email or web address]
== END ==
LOC: RAD 08:41
PROVIDERS: ATTEND Nurse Practitioner Family
DX: C18.1 Malignant neoplasm of appendix (principal); R91.1 Solitary pulmonary nodule; K42.9 Umbilical hernia without obstruction or gangrene
CPT/HCPCS: 71260; 74177